=== PATIENT | female | born 1950 | race Caucasian/White ===

== ENCOUNTER → 2024-02-14 16:20 | Outpatient (REF) | payer OTHER, SELFPAY | LOC: WDC 16:20 | PROVIDERS: ATTENDING PHYSICIAN Family Medicine Geriatric Medicine; FAMILY PHYSICIAN Internal Medicine | DX: Z12.31 Encounter for screening mammogram for malignant neoplasm of breast (principal) | CPT/HCPCS: 77063; 77067 ==

== ENCOUNTER 2024-02-20 22:38 | Inpatient (IN) | payer OTHER, SELFPAY ==
[2024-02-20] VITALS (12 sets, daily range): BP systolic 127–139; BP diastolic 78–99; PULSE 93–102; BMI 28.6; BMI 27.9
[2024-02-20 17:17] LABS: % Basophils 0.6 % (0-2); % Eosinophils 2.4 % (0-6); % Immature Granulocytes 0.4 % (0-0.5); % Lymphocytes 18.2 % (20.5-51.1); % Neutrophils 67.4 % (42.2-75.2); Absolute Eosinophils 0.1 10^3/uL (0-0.7); Absolute Lymphocytes 0.9 10^3/uL (1.2-3.4); Absolute Monocytes 0.6 10^3/uL (0.1-0.6); Absolute Neutrophils 3.4 10^3/uL (1.4-6.5); Hematocrit 36.2 % (37.0-47.0); Hemoglobin 11.8 g/dL (12.0-16.0); Mean Corp Hgb Conc. 32.6 g/dL (33.0-37.0); Mean Corpuscular Hgb 31.9 pg (27.0-31.0); Mean Corpuscular Volume 97.8 fL (81.0-99.0); Mean Platelet Volume 10.3 fL (7.4-10.4); Nucleated Red Blood Cells % 0 %; Platelet Count 163 10^3/uL (130-400); White Blood Cell Count 5.1 10^3/uL (4.8-10.8)
[2024-02-20 17:31] LABS: ALT (SGPT) 59 U/L (0-35); AST (SGOT) 76 U/L (14-36); Albumin 3.9 g/dl (3.5-5.0); Alkaline Phosphatase 60 U/L (38-126); Blood Urea Nitrogen 16 mg/dl (7-17); Calcium 9.1 mg/dl (8.4-10.2); Carbon Dioxide 25 mmol/L (22-30); Chloride 101 mmol/L (98-107); Estimated Creatinine Clearance 87 ml/min; Glucose 102 mg/dl (70-99); Sodium 133 mmol/L (135-145); Total Bilirubin 0.5 mg/dl (0.2-1.3); Total Protein 6.2 g/dl (6.3-8.2); eGFR > 60.00
[2024-02-20 18:00] LABS: TSH Reflex To Free T4 1.39 uIU/ml (0.47-4.68)
[2024-02-20 18:09] LABS: Troponin I < 0.012 ng/ml
[2024-02-20] MEDS: ELIQUIS 5 MG PO (18:35)
[2024-02-20] MEDS: TYLENOL 1000 MG PO (19:02)
--- NOTE | 2024-02-20 19:44 | ED.GENMED ---
History of Present Illness
<Black Dolan DO - Last Filed: 02/20/24 19:49>
General
Chief Complaint: Chest Pain
Time Seen by Provider: 02/20/24 17:20
Travel History
Have you had any contact with someone who has COVID-19?: No
Do you have any symptoms of coronavirus? Fever > 100 degrees, chills, cough, shortness of breath, sore throat, loss of taste or smell, muscle aches, or headache?: No
<Malik De La Paz Jr., PA-C - Last Filed: 02/20/24 22:16>
General
Source: patient
Exam Limitations: none
Nursing documentation reviewed up to this point in time: agreed with
History of Present Illness
History of Present Illness:
73-year-old female past medical history of hypertension asthma presenting to the emergency department today after she found to be in atrial fibrillation with her primary care doctor where she went in to be seen for generalized weakness and fatigue
over the past few days that was initially intermittent but ongoing over the past 24 hours or so. Denies recent illness fevers or new medications.
Past History
<Black Dolan DO - Last Filed: 02/20/24 19:49>
Past History
ED Past Medical History: None
ED Past Surgical History: Appendectomy and Cholecystectomy
Social History
Tobacco: Non-smoker
Alcohol: None
Living: with family
Review of Systems
<Malik De La Paz Jr., PA-C - Last Filed: 02/20/24 22:16>
Review of Systems
Allergies reviewed?: Yes
All Other Systems: ROS reviewed and negative except as documented in HPI and ROS
Phy Exam
<Malik De La Paz Jr., PA-C - Last Filed: 02/20/24 22:16>
Physical Exam
Physical Exam:
GENERAL: Alert , in no apparent distress
EYE: pupils equal and reactive
NECK: Supple, no significant adenopathy.
ENT: o/p clr, mmm.
CARDIAC: Regular rate and rhythm .
LUNGS: Clear breath sounds bilaterally, no acute respiratory distress, no wheezes/rales/rhonchi
ABDOMEN: Soft, without focal tenderness, no r/g, no cvat
NEUROLOGICAL: Alert and oriented, no focal neuro deficits
SKIN: Warm and dry, skin intact.
MUSCULOSKELETAL: No edema, well perfused.
PSYCH: Normal and appropriate interaction.
Scores
<Malik De La Paz Jr., PA-C - Last Filed: 02/20/24 22:16>
Heart Score for Chest Pain Patients
STEMI patient?: No
History: Slightly or Non-Suspicious
ECG: Nonspecific Repolarization
Age: >/= 65 years
Risk Factors: 1 or 2 Risk Factors
Troponin: </= Normal Limit
Heart Score for Chest Pain Patients: 4
Heart Score Risk: 20.3% MACE over next 6 weeks
Course
<Black Dolan DO - Last Filed: 02/20/24 19:49>
Orders/Labs/Results
Orders:
Orders
02/20/24 16:07
Electrocardiogram (*1) Urgent
Reason for Study: Atrial Fibrillation
EKG- Treatment ONCE
02/20/24 17:06
Complete Blood Count/With Diff Urgent
NT-proBNP Urgent
Comment: ADD ON
TSH Reflex To Free T4 Urgent
02/20/24 17:07
Comprehensive Metabolic Panel Urgent
Troponin I Urgent
02/20/24 18:26
Apixaban [Eliquis] 5 mg PO ONCE ONE
02/20/24 19:00
Acetaminophen [Tylenol] 1,000 mg .ROUTE .STK-MED ONE
02/20/24 19:01
Acetaminophen [Tylenol] 1,000 mg PO NOW STA
02/20/24 19:42
0.9% Sodium Chloride 500 ml [Nss] 500 ml IV BOLUS
02/20/24 21:44
Urinalysis Reflex To Culture Routine
Date Specimen was Collected: 02/20/24
Time Specimen was Collected: 22:06
02/20/24 21:54
Admit/Transfer Patient As Directed
Co-Sign Provider:
Level of Care: Inpatient admission
Assign to:: Telemetry
Physician / Group: htay
Diagnosis: new onset AF, acute gait dysfunction
Reason for Telemetry: Arrhythmia
Date to Stop Telemetry: 02/23/24
Time to Stop Telemetry: 11:00
Reason for Hospitalization: new onset AF, acute gait dysfunction
Expected length of stay greater than two midnights?: Yes
ELOS- Estimated Length of Stay in days: 3
I certify the patient meets the requirements for IP care: Yes
02/20/24 21:56
Code Status As Directed
Resuscitation Status: Full Code
02/20/24 22:01
Add On- LAB Routine
Tests Added?: pro bnp
02/23/24 11:00
DC Protocol for Telemetry ONCE
Abnormal Lab Results
02/20/24 02/20/24
17:06 17:07
RBC 3.70 L 10^6/uL
(4.20-5.40)
Hgb 11.8 L g/dL
(12.0-16.0)
Hct 36.2 L %
(37.0-47.0)
MCH 31.9 H pg
(27.0-31.0)
MCHC 32.6 L g/dL
(33.0-37.0)
Absolute Lymphs (auto) 0.9 L 10^3/uL
(1.2-3.4)
Lymphocytes % 18.2 L %
(20.5-51.1)
Monocytes % 11.0 H %
(1.7-9.3)
Sodium 133 L mmol/L
(135-145)
Creatinine 0.5 L mg/dL
(0.6-1.0)
Glucose 102 H mg/dl
(70-99)
AST 76 H U/L
(14-36)
ALT 59 H U/L
(0-35)
Total Protein 6.2 L g/dl
(6.3-8.2)
02/20/24 17:06
02/20/24 17:07
Vital Signs
Initial and Last Documented VS:
Initial Vital Signs
Temp Pulse Resp BP Pulse Ox
98.0 F 110 16 133/78 98
02/20/24 16:13 02/20/24 16:13 02/20/24 16:13 02/20/24 16:13 02/20/24 16:13
Last Documented Vital Signs
Temp Pulse Resp BP Pulse Ox
98.0 F 110 16 133/78 95
02/20/24 16:13 02/20/24 16:13 02/20/24 16:13 02/20/24 16:13 02/20/24 16:51
<Malik De La Paz Jr., PA-C - Last Filed: 02/20/24 22:16>
Orders/Labs/Results
Orders:
Orders
02/20/24 16:07
Electrocardiogram (*1) Urgent
Reason for Study: Atrial Fibrillation
EKG- Treatment ONCE
02/20/24 17:06
Complete Blood Count/With Diff Urgent
NT-proBNP Urgent
Comment: ADD ON
TSH Reflex To Free T4 Urgent
02/20/24 17:07
Comprehensive Metabolic Panel Urgent
Troponin I Urgent
02/20/24 18:26
Apixaban [Eliquis] 5 mg PO ONCE ONE
02/20/24 19:00
Acetaminophen [Tylenol] 1,000 mg .ROUTE .STK-MED ONE
02/20/24 19:01
Acetaminophen [Tylenol] 1,000 mg PO NOW STA
02/20/24 19:42
0.9% Sodium Chloride 500 ml [Nss] 500 ml IV BOLUS
02/20/24 21:44
Urinalysis Reflex To Culture Routine
Date Specimen was Collected: 02/20/24
Time Specimen was Collected: 22:06
02/20/24 21:54
Admit/Transfer Patient As Directed
Co-Sign Provider:
Level of Care: Inpatient admission
Assign to:: Telemetry
Physician / Group: htay
Diagnosis: new onset AF, acute gait dysfunction
Reason for Telemetry: Arrhythmia
Date to Stop Telemetry: 02/23/24
Time to Stop Telemetry: 11:00
Reason for Hospitalization: new onset AF, acute gait dysfunction
Expected length of stay greater than two midnights?: Yes
ELOS- Estimated Length of Stay in days: 3
I certify the patient meets the requirements for IP care: Yes
02/20/24 21:56
Code Status As Directed
Resuscitation Status: Full Code
02/20/24 22:01
Add On- LAB Routine
Tests Added?: pro bnp
02/23/24 11:00
DC Protocol for Telemetry ONCE
Abnormal Lab Results
02/20/24 02/20/24
17:06 17:07
RBC 3.70 L 10^6/uL
(4.20-5.40)
Hgb 11.8 L g/dL
(12.0-16.0)
Hct 36.2 L %
(37.0-47.0)
MCH 31.9 H pg
(27.0-31.0)
MCHC 32.6 L g/dL
(33.0-37.0)
Absolute Lymphs (auto) 0.9 L 10^3/uL
(1.2-3.4)
Lymphocytes % 18.2 L %
(20.5-51.1)
Monocytes % 11.0 H %
(1.7-9.3)
Sodium 133 L mmol/L
(135-145)
Creatinine 0.5 L mg/dL
(0.6-1.0)
Glucose 102 H mg/dl
(70-99)
AST 76 H U/L
(14-36)
ALT 59 H U/L
(0-35)
Total Protein 6.2 L g/dl
(6.3-8.2)
02/20/24 17:06
02/20/24 17:07
Vital Signs
Initial and Last Documented VS:
Initial Vital Signs
Temp Pulse Resp BP Pulse Ox
98.0 F 110 16 133/78 98
02/20/24 16:13 02/20/24 16:13 02/20/24 16:13 02/20/24 16:13 02/20/24 16:13
Last Documented Vital Signs
Temp Pulse Resp BP Pulse Ox
98.0 F 110 16 133/78 95
02/20/24 16:13 02/20/24 16:13 02/20/24 16:13 02/20/24 16:13 02/20/24 16:51
<Malik De La Paz Jr., PA-C - Last Filed: 02/20/24 22:16>
MDM/Problems Addressed
MDM/Problems Addressed:
73-year-old female presenting to the emergency department today with concerns of new onset A-fib seen by the primary care. Upon arrival heart rate in the 90s to 110s normal pulse ox normal blood pressure labs unremarkable negative troponin. Case
was discussed with cardiology patient was started on anticoagulant. Patient was walked here in the ER but claiming that she felt very weak and tired did not feel well enough to go home. Concerning this plan to admit for further evaluation and
monitoring.
<Malik De La Paz Jr., PA-C - Last Filed: 02/20/24 22:16>
*Critical Care Note
Total Time (30-74mins, 75-104mins- exclusive of procedures): Not Applicable
ED Attending Note
<Black Dolan DO - Last Filed: 02/20/24 19:49>
ED Attending Note
Patient seen and examined by attending physician: Yes
I performed the substantive portion of visit, reviewed & personally made and approve the management plan that is documented in note by myself or RUSH.: Yes
ED Attending Note:
Patient is a 73-year-old female presents to the emergency department after being found in atrial fibrillation today. Patient is on metoprolol for her hypertension. Patient states that 3 days ago she had an episode where she felt like it was her
vertigo that was bothering her but she had to stop because she felt lightheaded and so she was going to pass out. It passed after about half an hour. Patient was not feeling great yesterday and then today she felt worse and was going to see her
doctor when she was instructed to come to the emergency department visit. That she was in atrial fibrillation. Patient has no previous history of similar episodes. Patient feels weak and lightheaded. Patient has diminished appetite with mild
nausea but no vomiting, diarrhea, melena or hematochezia. Patient's previous echocardiogram approximately 1 year ago had an EF of 60 to 65% with mild MR and thickening mitral valve leaflets. EKG shows atrial fibrillation with what appears to be a
left bundle branch block and PVCs.
Physical exam patient appears pale and weak. Heart is irregularly irregular with normal rate. Lungs are clear. No neck vein distention. No peripheral edema or cyanosis. Abdomen soft nontender. Patient is rate controlled. Depending on whether
the patient remains symptomatic or not we will determine whether the patient needs to be admitted. This is new onset atrial fibrillation. At the very least the patient will be anticoagulated and referred to cardiology in approximately a week for
possible cardioversion and further evaluation.
-
Portions of this chart may have been created with voice recognition software.� Occasional wrong word or��sound alike� substitutions may have occurred due to the inherent limitations of voice recognition software.
Discharge Plan
Departure
Patient Disposition: Admit
Date of Disposition: 02/20/24
Time of Disposition: 22:16
Admit to: Telemetry
Admit to doctor: Rhea
Presentation/result/management discussed w/ accepting MD/DO: Hospitalist
Patient with high blood pressure during this ER visit?: No
Condition: Good
Covid-19: Not Applicable
Discharge Problem:
Atrial fibrillation
Prescriptions:
No Action
metoprolol succinate 50 MG tablet extended release 24 hr
50 mg PO DAILY
montelukast 10 MG tablet
10 mg PO HS
multivitamin with folic acid [Tab-A-Erich] 1 TABLET tablet
1 tab PO DAILY
guaifenesin [Mucus Relief ER] 600 MG tablet extended release 12hr
1,200 mg PO BID
albuterol sulfate 1 PUFF HFA aerosol inhaler
2 puff inhalation R Q4HPRN PRN (Reason: sob)
letrozole 2.5 MG tablet
2.5 mg PO DAILY
cholecalciferol (vitamin D3) 2,000 UNITS tablet
2,000 units PO DAILY
fluoxetine 40 mg Capsule
80 mg PO HS
ibuprofen 200 mg Capsule
400 mg PO TID PRN (Reason: mild pain/fever)
fexofenadine 180 mg Tablet
180 mg PO DAILY
budesonide-formoterol [Symbicort] 160-4.5 mcg/actuation Hfa Aerosol Inhaler
2 puff INHALATION R BID
Prolia 60 mg/mL Syringe
60 mg SC [id number]
[facility] 40-10-5-3.3 mg Tablet
1 tab PO DAILY
fluticasone propionate [Flonase] 50 mcg/actuation [place],Suspension
1 spray INTRANASAL BID
Referrals:
Leslye Motley MD [Family Provider] -
Interventions
Interventions:
*Risk Screen - Suicide Last Done: 02/20/24 16:46
*General Assessment Last Done: 02/20/24 16:46
*Neglect/Abuse Screening Last Done: 02/20/24 16:46
ED- Fall Risk Assessment Last Done: 02/20/24 16:51
*ED COVID-19 Vaccine History Last Done: 02/20/24 16:13
ED- Cardiac Assessment Last Done: 02/20/24 16:50
Discharge Date and Time
Print Language: LAO
[2024-02-20] MEDS: NSS 500 IV (19:56)
--- NOTE | 2024-02-20 21:47 | HPS.HSE ---
Family Physician
-
Family Physician: Leslye Motley
Chief Complaint
-
Dizziness / lightheadedness
History of Present Illness
73F HX Asthma , HTN on Metoprolol , s/p lumpectomy of Rt Breast CA seen at ER for evaluation of dizziness / lightheadedness:
Dizziness / lightheadedness:
Acute onset today and Recalled similar symptoms few days ago for Mins but spontaneously resolved
Associate with feeling of passing out but denied passing out and fall
She saw out PCP evaluation today and noted in Fast AF thus sent to ER
No prior HX AF, CHF
ROS
No CP, No SoB , No Lgg swelling
Medical History
Past Medical History
Past Medical History: Reports COPD and HTN
Past Surgical History: Reports None
Social History
Tobacco: Non-smoker
Alcohol: None
Drug: None
Living: With Family
Family History
Family History: Not pertinent
Allergies / Home Medications
Allergies reflects when Allergies were last updated in [employer].
Home Medications with original date entered in [employer]
Allergy/Medication List:
Allergies
Allergy/AdvReac Type Severity Reaction Status Date / Time
latex Allergy Skin Verified 02/20/24 16:15
irritation,
blisters,
difficulty
breathing
Penicillins Allergy Swelling, Verified 02/20/24 16:15
rash, hives
Enviornmental Allergy Triggers Uncoded 02/20/24 16:15
asthma
Home Medications
budesonide-formoterol HFA 160 mcg-4.5 mcg/actuation aerosol inhaler (Symbicort) 2 puff inhalation BID 01/31/13
albuterol sulfate 90 mcg/actuation aerosol inhaler 1 puff inhalation R Q4HPRN PRN sob 08/02/19
guaifenesin 600 mg tablet, extended release 12 hr (Mucus Relief ER) 1,200 mg PO BID 08/02/19
metoprolol succinate 50 mg tablet,extended release 24 hr 50 mg PO DAILY 08/02/19
mometasone 50 mcg/actuation nasal spray (Nasonex) 2 spray intranasal DAILY 08/02/19
montelukast 10 mg tablet 10 mg PO HS 08/02/19
multivitamin with folic acid 400 mcg tablet (Tab-A-Erich) 1 tab PO DAILY 08/02/19
mupirocin 2 % topical ointment 1 applic intranasal BID #1 tube 12/14/19
cholecalciferol (vitamin D3) 50 mcg (2,000 unit) tablet 2,000 units PO DAILY 12/20/19
fluoxetine 20 mg capsule 80 mg PO HS 12/20/19
letrozole 2.5 mg tablet 2.5 mg PO DAILY 12/20/19
fexofenadine 180 mg tablet (Ivy) 1 tab PO Daily 12/31/19
acetaminophen 500 mg tablet 1,000 mg (2 x 500 mg) PO QID #1 tab 01/09/20
aspirin 325 mg tablet 325 mg PO DAILY #1 tab 01/09/20
docusate sodium 100 mg capsule 100 mg PO BID 01/09/20
famotidine 20 mg tablet 20 mg PO HS #30 tabs 01/09/20
ibuprofen 400 mg tablet 400 mg PO BID ##1 01/09/20
ondansetron HCl 4 mg tablet 4 mg PO Q6HPRN PRN nausea #20 tabs 01/09/20
sennosides 8.6 mg tablet (senna) 2 tab PO BID 01/09/20
tramadol 50 mg tablet 50 mg PO Q6HPRN PRN pain #40 tabs 01/09/20
Review of Systems
-
Constitutional: Reports No Symptoms
EENT: Reports No Symptoms
Respiratory: Reports No Symptoms
Cardiac: Reports See HPI and Palpitations
Abdomen/GI: Reports No Symptoms
: Reports No Symptoms
Musculoskeletal: Reports No Symptoms
Skin: Reports No Symptoms
Neurological: Reports Dizzy and Weakness
Endocrine: Reports No Symptoms
Hematologic/Lymphatic: Reports No Symptoms
Psych: Reports No Symptoms
Physical Exam
Vital Signs
Vital Signs
Temp Pulse Resp BP Pulse Ox
98.0 F 110 16 133/78 95
02/20/24 16:13 02/20/24 16:13 02/20/24 16:13 02/20/24 16:13 02/20/24 16:51
Physical Exam
General: No Apparent Distress, Comfortable and Other
HEENT: NormoCephalic and Anicteric
Respiratory: Clear; No Wheezes, Rales or Rhonchi
Cardiac: S1/S2, Irregular Rhythm and Tachycardia; No Murmur
Breast: Deferred by me
GI: Soft, Non Tender, Non Distended and Normal Bowel Sounds
Musculoskeletal: No Edema
Skin: Warm and Dry; No Jaundice
Neuro: AO x 3
Psych: Calm
Laboratory Results
-
02/20/24 17:06
02/20/24 17:07
Laboratory Results
Total Bilirubin 0.5 mg/dl (0.2-1.3) 02/20/24 17:07
AST 76 U/L (14-36) H 02/20/24 17:07
ALT 59 U/L (0-35) H 02/20/24 17:07
Alkaline Phosphatase 60 U/L (38-126) 02/20/24 17:07
Troponin I < 0.012 ng/ml 02/20/24 17:07
Data Reviewed
-
Medical Tests (Nuc Med, Echo, EKG etc): Report Reviewed by me
Lab Data: Labs Reviewed by me
Impression/Plan
-
Reviewed VS: afebrile , HR 110 BP 133/78
Data
Hgb 11.8
Na 133
eGFR > 60
AST 76 ALT 59 AKP 60
NEG TPNI
TSH 1.39
02/20/24 EKG at 1607
ATRIAL FIBRILLATION WITH PREMATURE VENTRICULAR OR ABERRANTLY CONDUCTED
COMPLEXES
LEFT AXIS DEVIATION
LEFT BUNDLE BRANCH BLOCK
ABNORMAL ECG
WHEN COMPARED WITH ECG OF 02-AUG-2019 17:00,
ATRIAL FIBRILLATION HAS REPLACED SINUS RHYTHM
01/31/23 ECHO
Nl LVEF 60-65
Diastolic function indeterminate.
Mild mitral regurgitation.
Moderately dilated left atrium.
No aortic stenosis. Trace aortic regurgitation is seen.
NO prior hospitalist admission:
ASSESSMENT & PLAN
Pending Rx reconciliation
Symptomatic new onset AF with VR 90-110
Associated palpitation/weakness and presyncope for a few days.
No prior HX AF , CHF, PE
nl TSH
- NEG TPNI
- check p BNP
- agree with Eliquis
- On CRATER AND PACKER metoprolol.
- ECHO in AM
- DCA card consulted
Acute gait dysfunction due to Fast AF
Associated weakness
- check UA
- PT/OT
HX Asthma
- cont all OP med after reconciliation
HX s/p lumpectomy of Rt Breast CA
- cont Letrazole
DVT Px: Eliquis
Code: Full
Ip TLM
[2024-02-20 22:28] LABS: Urine Albumin Negative (Neg - Trace); Urine Bilirubin Negative (Negative); Urine Character Clear (Clear); Urine Color Yellow; Urine Glucose Negative (Negative); Urine Ketone Negative (Negative); Urine Leukocyte Negative (Negative); Urine Nitrite Negative (Negative); Urine Occult Blood Negative (Negative); Urine Urobilinogen Negative (Neg - 1+)
[2024-02-20] MEDS: SINGULAIR 10 MG PO (23:09)
[2024-02-20] MEDS: TYLENOL 650 MG PO (23:09)
[2024-02-20 23:11] LABS: NT-proBNP 3010 pg/ml
[2024-02-21] VITALS (8 sets, daily range): BP systolic 102–151; BP diastolic 67–93; PULSE 86–102; O2SAT 97; BMI 27.5
--- NOTE | 2024-02-21 02:15 | PTCARENOTE ---
Patient arrived to floor VSS, NAD. Placed on monitor, A-fib with BBB. PT oriented to room and all questions answered. Call alvarez within reach
[2024-02-21] MEDS: TYLENOL PO ×2 (03:08→23:07)
[2024-02-21] MEDS: SYMBICORT 160/4.5 MCG INHALER 2 PUFF INH ×2 (08:14→20:28)
[2024-02-21] MEDS: MUCINEX 1200 MG PO ×2 (08:58→20:23)
[2024-02-21] MEDS: TYLENOL 650 MG PO ×4 (08:58→20:23)
[2024-02-21] MEDS: CLARITIN CHILDREN'S 5 MG PO (08:59)
[2024-02-21] MEDS: ELIQUIS 5 MG PO ×2 (08:59→20:24)
[2024-02-21] MEDS: FEMARA 2.5 MG PO (08:59)
[2024-02-21] MEDS: TOPROL XL 50 MG PO (08:59)
[2024-02-21 09:15] LABS: Hemoglobin 12.5 g/dL (12.0-16.0); Mean Corp Hgb Conc. 33.8 g/dL (33.0-37.0); Mean Corpuscular Hgb 32.1 pg (27.0-31.0); Mean Corpuscular Volume 94.9 fL (81.0-99.0); Mean Platelet Volume 10.9 fL (7.4-10.4); Platelet Count 164 10^3/uL (130-400); White Blood Cell Count 4.6 10^3/uL (4.8-10.8)
[2024-02-21 09:41] LABS: ALT (SGPT) 61 U/L (0-35); AST (SGOT) 74 U/L (14-36); Albumin 3.7 g/dl (3.5-5.0); Alkaline Phosphatase 58 U/L (38-126); Blood Urea Nitrogen 11 mg/dl (7-17); Calcium 8.3 mg/dl (8.4-10.2); Carbon Dioxide 22 mmol/L (22-30); Chloride 109 mmol/L (98-107); Estimated Creatinine Clearance 85 ml/min; Glucose 81 mg/dl (70-99); Sodium 136 mmol/L (135-145); Total Bilirubin 0.5 mg/dl (0.2-1.3); Total Protein 6.2 g/dl (6.3-8.2); eGFR > 60.00
--- NOTE | 2024-02-21 10:14 | W.PN.HOSP.TC ---
Today's Communication/Plan
-
Echo
DCA card eval
continue BB/Eliquis
Assessment / Plan
Assessment / Plan
Assessment:
New Onset, Parox A.fib with RVR
- neg trop; normal TSH
- BNP 3010, no overt evidence of CHF
- check CXR
- continue BB
- Eliquis initiated; [id number] score is 4 (gender, age, HTN)
- DCA cards consulted
- Echo: pending
weakness from A. Fib
- PT/OT
Elevated LFTs likely from transient hypoperfusion in setting of A. Fib
- trend LFTs
hx of Asthma
- continue Symbicort/Ivy/Flonase/Singulair
Hyponatremia - resolved
Essential HTN - continue BB
Allergic Rhinitis - on Nasonex.
Osteopenia
ARIANA - on CPAP qHS.
Hx Breast CA - continue Letrozole. S/P right lumpectomy, XRT.
Hx Melanoma - s/p resection
Depression - on Prozac.
hx of Acute Traumatic Left Ankle Fracture (distal left fibular)- s/p ORIF
DVT ppx: Eliquis
Code: Full
Anticipated Discharge: 24 - 48 hours
Subjective/Interval History
-
Date of Service: February 21, 2024
feels a slight headache, improving with Tylenol
denies any lightheadedness or dizziness
Objective Data
-
Labs:
Laboratory Results
02/21/24
08:02
WBC 4.6 L
Hgb 12.5
Hct 37.0
Plt Count 164
Sodium 136
Potassium 4.0
Chloride 109 H
Carbon Dioxide 22
BUN 11
Creatinine 0.4 L
Glucose 81
Calcium 8.3 L
Total Bilirubin 0.5
AST 74 H
ALT 61 H
Alkaline Phosphatase 58
Vital Signs:
Vital Signs
Temp Pulse Resp BP Pulse Ox
98.6 F 83 18 151/89 97
02/21/24 07:30 02/21/24 08:59 02/21/24 07:30 02/21/24 08:59 02/21/24 07:30
Physical Exam
-
General: No Apparent Distress
HEENT: Normocephalic and Atraumatic
Cardiac: Irregular Rhythm and Tachycardic
GI: Soft
Genito-urinary: No Costovertebral Tender
Neuro: AO x 3
Psych: Calm
Data Reviewed
-
Total Time Spent with Patient (in minutes): 42
Labs: Labs Reviewed by me
--- NOTE | 2024-02-21 12:06 | CON.CAR ---
Addendum entered and electronically signed by Daniele Castañeda MD 02/21/24 14:01:
I saw and examined the patient.
The HULL OUTFIT SUPERVISOR or PA's note was reviewed and I agree with the note.
Comment: General: Well developed, well nourished in NAD.
Neck: Supple, no JVD, HJR, carotids +2 B/L, no bruits bilaterally.
Heart: Non displaced PMI, irregular, no murmurs, No S3, S4, no rubs.
Lungs: Clear to auscultation bilaterally, no wheeze, rhonchi, rubs bilaterally,
normal expiratory phase.
Extremities: No clubbing, cyanosis or edema bilaterally.
Neuro: Grossly nonfocal, awake, alert and oriented x3.
Urvashi has a history of breast cancer, asthma, left bundle branch block, hypertension, sleep apnea on CPAP. She has had several months of palpitations. There was concern of A-fib but could not be documented by monitor. She noted fatigue and
weakness yesterday and found to be in atrial fibrillation. She feels a little better today. She remains in atrial fibrillation.
She remains in A-fib with suboptimal heart rate control. Will plan on DESTINEE/cardioversion on 02/21 a.m. Will consider antiarrhythmic therapy status post cardioversion with high risk of recurrent A-fib given multiple episodes of palpitations in the
past. Will give a dose of IV Lasix for elevated proBNP. Consider outpatient stress test given symptoms of discomfort in her neck with palpitations and left bundle branch block. Check echo
Original Note:
Consultation
Consultation Request
Date/Time Consultation Performed: 02/21/24
Requesting Provider: Dr. Wilkerson
Performing Provider: Tiffany Monterroso PA-C for Dr. Castañeda
Reason for Consultation: afib
Medical History
-
Chief Complaint: new afib
History of Present Illness:
Patient is a 73-year-old female with past medical history of right breast cancer status post partial mastectomy with radiation in 2019 on chronic letrozole, asthma, chronic left bundle branch block, hypertension, PVCs who we had last seen 02/2023 for
complaints of palpitations. There was concern for A-fib, however she had outpatient monitor 01/2023 without any atrial arrhythmias noted. She reports she has continued with intermittent palpitations since that time. They can occur more frequently
1 week and less frequently the next. She states normally they last for approximately a half an hour in duration. She states yesterday she noted fatigue and weakness which lasted much of the day. She was seen by her primary care physician and had
an EKG which showed new atrial fibrillation and was referred to the emergency room for evaluation as heart rates were rapid. She is chronically on Toprol 50 mg daily as an outpatient. Trop negative x1. Cardiology consulted for evaluation
PMH:
right breast cancer status post partial mastectomy with radiation in 2018 on chronic letrozole
asthma
chronic left bundle branch block
hypertension
PVCs
ARIANA on CPAP
Depression
Past Medical History
Past Medical History: Other (in HPI)
Social History
Tobacco: Non-Smoker
Alcohol: None
Personal:
Employment: Retired
Allergies / Home Medications
Allergy/AdvReac Type Severity Reaction Status Date / Time
latex Allergy Skin Verified 02/20/24 16:15
irritation,
blisters,
difficulty
breathing
Penicillins Allergy Swelling, Verified 02/20/24 16:15
rash, hives
Enviornmental Allergy Triggers Uncoded 02/20/24 16:15
asthma
�Medication �Instructions �Recorded �Confirmed �Type
albuterol sulfate 90 mcg/actuation 2 puff inhalation R Q4HPRN PRN sob 08/02/19 02/20/24 History
aerosol inhaler
guaifenesin 600 mg tablet, 1,200 mg PO BID 08/02/19 02/20/24 History
extended release 12 hr (Mucus
Relief ER)
metoprolol succinate 50 mg 50 mg PO DAILY 08/02/19 02/20/24 History
tablet,extended release 24 hr
montelukast 10 mg tablet 10 mg PO HS 08/02/19 02/20/24 History
multivitamin with folic acid 400 1 tab PO DAILY 08/02/19 02/20/24 History
mcg tablet (Tab-A-Erich)
cholecalciferol (vitamin D3) 50 2,000 units PO DAILY 12/20/19 02/20/24 History
mcg (2,000 unit) tablet
letrozole 2.5 mg tablet 2.5 mg PO DAILY 12/20/19 02/20/24 History
budesonide-formoterol HFA 160 2 puff inhalation R BID 02/20/24 02/20/24 History
mcg-4.5 mcg/actuation aerosol
inhaler (Symbicort)
cartilage 40 mg-collagen II 10 1 tab PO DAILY 02/20/24 02/20/24 History
mg-boron 5 mg-hyaluronate 3.3 mg
tablet (Cloudsnap)
denosumab 60 mg/mL subcutaneous 60 mg SC [id number] 02/20/24 02/20/24 History
syringe (Prolia)
fexofenadine 180 mg tablet 180 mg PO DAILY 02/20/24 02/20/24 History
fluoxetine 40 mg capsule 80 mg PO HS 02/20/24 02/20/24 History
fluticasone propionate 50 1 spray intranasal BID 02/20/24 02/20/24 History
mcg/actuation nasal
spray,suspension
ibuprofen 200 mg capsule 400 mg PO TID PRN mild pain/fever 02/20/24 02/20/24 History
Review of Systems
-
History Source: Patient
All other systems: Negative unless noted
Physical Exam
Vital Signs
Temp Pulse Resp BP Pulse Ox
97.7 F 85 18 134/84 97
02/21/24 11:25 02/21/24 11:25 02/21/24 11:25 02/21/24 11:25 02/21/24 11:25
Lab Results
02/21/24 08:02
02/21/24 08:02
Troponin I < 0.012 ng/ml 02/20/24 17:07
[id number] Pept Cancelled 02/20/24 21:44
Physical Exam
General: No Apparent Distress, Comfortable and Other (sitting in chair)
HEENT: Normocephalic, Anicteric and Moist Mucous Membranes
Respiratory: Rhonchi and Non Labored Respirations
Cardiac: S1/S2 and Irregular Rhythm
GI: Soft, Non Tender, Non Distended and Normal Bowel Sounds
Musculoskeletal: No Clubbing, No Cyanosis and No Edema
Skin: Warm and Dry
Neuro: AO x 3
Impression / Plan
-
Primary Machine Spreader: Dr. Castañeda
Assessment:
Presentation with fatigue, weakness
New atrial fibrillation with RVR, paroxysmal
Negative troponin x1
Mild LFT elevation
Right breast cancer status post partial mastectomy with radiation in 2019 on chronic letrozole
asthma
chronic left bundle branch block
hypertension
PVCs
ARIANA on CPAP
Depression
ECHO 01/31/23: EF 60 to 65%, mild MR, moderately dilated left atrium, trace AR
Plan:
-Patient presented to PCP with fatigue and weakness and was diagnosed with new atrial fibrillation with rapid ventricular response. She likely has been paroxysmal for quite some time, however was never been able to be caught on evaluation before.
-Remains in atrial fibrillation with suboptimal rates on outpatient Toprol 50 mg daily
-Discussed DESTINEE/cardioversion and she is agreeable to proceed. Will plan for a.m.
-Given paroxysmal nature of her atrial fibrillation, would consider addition of antiarrhythmic drug therapy post CV
-[id number] score of 4 for age, female, hypertension. She has been initiated on Eliquis 5 mg twice daily. Will have case management assess cost to patient
-Check echo, last from 01/2023 with results as above
-Reports in the setting of palpitations, she sometimes develops discomfort in her neck. Would consider for outpatient ischemic evaluation. Troponin negative x 1
-proBNP 3010. She has mildly elevated LFTs as well. She did not have chest x-ray on admission. She does not report shortness of breath at rest, however does report some dyspnea on exertion. She denies weight gain, lower extremity edema,
abdominal bloating, or orthopnea. Would consider for dose of IV Lasix 20 mg x 1
Data Reviewed
-
EKG: Tracing Personally Visualized and interpreted
Medical Tests (Nuc Med, Echo etc): Report Reviewed by me
Labs: Labs Reviewed by me
Old Records: Reviewed
--- NOTE | 2024-02-21 14:22 | CM ---
Addendum entered by Merlene Rdz 02/21/24 15:58:
Patient seen bedside.
IA completed.
Patient lives with spouse in a rancher type home with 1 step to enter.
patient ambulates with a cane.
Patient drives.
Patient independent prior to admission.
Patient had [facility] in the past.
PT/OT recommending no needs.
Per patient for CV tomorrow.
PCP: Dr Motley
Pharmacy: [facility]
Plan: home no needs.
Original Note:
CM consult re medication costs.
Eliquis 5 mg po bid noted by [facility] to be $47/month.
[2024-02-21] MEDS: LASIX 40 MG IV (16:56)
[2024-02-21] MEDS: SINGULAIR 10 MG PO (20:23)
[2024-02-21] MEDS: PROZAC 80 MG PO (20:24)
[2024-02-22] VITALS (7 sets, daily range): BP systolic 107–151; BP diastolic 61–98; BMI 26.4
[2024-02-22] MEDS: TYLENOL PO ×2 (04:40→07:40)
--- NOTE | 2024-02-22 05:15 | DOWNTIME ---
There was a [employer] Mid Level Clinician Downtime on 02/22/2024 from 0100 to 02/22/2024 at 0439. Downtime documentation of patient's care, including medication administrations, has been reconciled in the electronic record per guidelines. Refer to the
patient's paper chart under the miscellaneous tab to see printed paper medication records and downtime forms.
[2024-02-22] MEDS: ELIQUIS 5 MG PO ×2 (07:39→20:03)
[2024-02-22] MEDS: FEMARA 2.5 MG PO (07:39)
[2024-02-22] MEDS: TOPROL XL 50 MG PO (07:42)
[2024-02-22] MEDS: SYMBICORT 160/4.5 MCG INHALER INH (09:03)
[2024-02-22 11:12] LABS: Hematocrit 39.1 % (37.0-47.0); Hemoglobin 13.1 g/dL (12.0-16.0); Mean Corp Hgb Conc. 33.5 g/dL (33.0-37.0); Mean Corpuscular Hgb 32.1 pg (27.0-31.0); Mean Corpuscular Volume 95.8 fL (81.0-99.0); Mean Platelet Volume 10.5 fL (7.4-10.4); Platelet Count 177 10^3/uL (130-400); Red Blood Cell Count 4.08 10^6/uL (4.20-5.40); Red Cell Dist. Width 12.9 % (11.5-14.5); White Blood Cell Count 5.4 10^3/uL (4.8-10.8)
--- NOTE | 2024-02-22 11:23 | W.PN.CARDCBS ---
Today's Communication / Plan
-
Load with amiodarone if LFTs are improving
Remains in sinus rhythm status post DESTINEE/cardioversion
Consider discharge on amiodarone 200 mg p.o. twice daily on 02/22
Continue to follow off of diuretics
Consider outpatient stress testing given mildly reduced ejection fraction and left bundle branch block
Impression / Plan
-
Primary Compounding And Finishing Supervisor: Dr. Castañeda
Assessment:
Presentation with fatigue, weakness
New atrial fibrillation with RVR, paroxysmal -status post DESTINEE/cardioversion 02/22/2024
Mild cardiomyopathy ejection fraction 45% - 02/21/24
Moderate to severe TR
Mild LFT elevation
Right breast cancer status post partial mastectomy with radiation in 2018 on chronic letrozole
asthma
chronic left bundle branch block
hypertension
PVCs
ARIANA on CPAP
Depression
Echocardiogram 02/21/2024: Ejection fraction 45%, mild to moderate MR, severely dilated left atrium, moderate to severe TR with PA systolic of 50 mmHg
ECHO 01/31/23: EF 60 to 65%, mild MR, moderately dilated left atrium, trace AR
Plan:
She is seen status post DESTINEE/cardioversion to sinus rhythm
Left atrium is severely dilated and has had palpitations for many months so is at high risk of recurrent A-fib
Will load with amiodarone for at least the next 24-hour if LFTs are improved
[id number] score of 4 for age, female, hypertension. She has been initiated on Eliquis 5 mg twice daily. Will have case management assess cost to patient
She has had discomfort in her neck in the setting of palpitations and has mildly reduced ejection fraction left bundle branch block
Will schedule outpatient stress test when seen in follow-up in the office
She was given a dose of IV Lasix on 02/20 for elevated proBNP
Will continue to follow off of oral diuretics
Progress Note - Compounding And Finishing Supervisor
Subjective
Date of Service: February 22, 2024
No complaints. Seen status post DESTINEE/cardioversion.
Objective
Labs:
02/22/24 10:40
Labs
Hgb 13.1 g/dL (12.0-16.0) 02/22/24 10:40
Hct 39.1 % (37.0-47.0) 02/22/24 10:40
Plt Count 177 10^3/uL (130-400) 02/22/24 10:40
Sodium 136 mmol/L (135-145) 02/21/24 08:02
Potassium 4.0 mmol/L (3.5-5.1) 02/21/24 08:02
BUN 11 mg/dl (7-17) 02/21/24 08:02
Creatinine 0.4 mg/dL (0.6-1.0) L 02/21/24 08:02
Glucose 81 mg/dl (70-99) 02/21/24 08:02
Troponins
02/20/24
17:07
Troponin I < 0.012
Vital Signs and I&O:
Vital Signs
Temp Pulse Resp BP Pulse Ox
97.7 F 108 18 151/98 98
02/22/24 07:30 02/22/24 07:42 02/22/24 07:30 02/22/24 07:42 02/22/24 07:30
Vital Signs
Temp Pulse Resp BP Pulse Ox
97.7 F 108 18 151/98 98
02/22/24 07:30 02/22/24 07:42 02/22/24 07:30 02/22/24 07:42 02/22/24 07:30
Intake & Output
02/20/24 02/21/24 02/22/24 02/23/24
06:59 06:59 06:59 06:59
Intake Total 690 / 690
Balance 690 / 690
Physical Exam
Physical Exam
General: Well developed, well nourished in NAD.
Neck: Supple, no JVD, HJR, carotids +2 B/L, no bruits bilaterally.
Heart: Non displaced PMI, RRR, no murmurs, No S3, S4, no rubs.
Lungs: Clear to auscultation bilaterally, no wheeze, rhonchi, rubs bilaterally,
normal expiratory phase.
Extremities: No clubbing, cyanosis or edema bilaterally.
Neuro: Grossly nonfocal, awake, alert and oriented x3.
[2024-02-22] MEDS: MUCINEX 1200 MG PO ×2 (11:52→20:02)
[2024-02-22] MEDS: TYLENOL 650 MG PO ×3 (11:52→20:03)
[2024-02-22] MEDS: CLARITIN CHILDREN'S 5 MG PO (11:52)
[2024-02-22 13:09] LABS: ALT (SGPT) 40 U/L (0-35); AST (SGOT) 46 U/L (14-36); Albumin 3.7 g/dl (3.5-5.0); Alkaline Phosphatase 64 U/L (38-126); Blood Urea Nitrogen 17 mg/dl (7-17); Calcium 8.8 mg/dl (8.4-10.2); Carbon Dioxide 24 mmol/L (22-30); Chloride 101 mmol/L (98-107); Estimated Creatinine Clearance 76 ml/min; Glucose 82 mg/dl (70-99); Sodium 135 mmol/L (135-145); Total Bilirubin 0.6 mg/dl (0.2-1.3); Total Protein 6.1 g/dl (6.3-8.2); eGFR > 60.00
--- NOTE | 2024-02-22 13:50 | W.PN.HOSP.TC ---
Today's Communication/Plan
-
s/p CV and now on amio load
follow AM labs, tele/EKG
Assessment / Plan
Assessment / Plan
Assessment:
New Onset, Parox A.fib with RVR
- neg trop; normal TSH
- BNP 3010, no overt evidence of CHF. Did received 1 dose IV Lasix
- continue BB
- Eliquis initiated; [id number] score is 4 (gender, age, HTN)
- DCA cards following
- 2D Echo: Normal left ventricular chamber size. Abnormal (paradoxical) septal motion consistent with left bundle branch block. Mild concentric left ventricular hypertrophy. Left ventricular ejection fraction is 45% by Schwartz's method of discs.
Diastolic function indeterminate due to atrial fibrillation. Mitral valve opens normally. Thickened mitral valve leaflets. Mild to moderate mitral regurgitation. Severely dilated left atrium. Tricuspid valve opens normally. Moderate to severe
tricuspid regurgitation. Estimated pulmonary artery pressure of 50 mmHg assuming a right atrial pressure of 3 mmHg. Since echocardiogram 01/31/2023, ejection fraction has decreased from 60-65% to 45%. There is moderate to severe TR with moderate
pulm hypertension.
- s/p DESTINEE/CV 02/22 with congregation to sinus
- on Amiodarone load - monitor tele/EKG
weakness from A. Fib
- PT/OT - cleared for home no needs
Elevated LFTs likely from transient hypoperfusion in setting of A. Fib
- trend LFTs; improving
hx of Asthma
- continue Symbicort/Ivy/Flonase/Singulair
Hyponatremia - resolved
Essential HTN - continue BB
Allergic Rhinitis - on Nasonex.
Osteopenia
ARIANA - on CPAP qHS.
Hx Breast CA - continue Letrozole. S/P right lumpectomy, XRT.
Hx Melanoma - s/p resection
Depression - on Prozac.
hx of Acute Traumatic Left Ankle Fracture (distal left fibular)- s/p ORIF
DVT ppx: Eliquis
Code: Full
Anticipated Discharge: 24 - 48 hours
Subjective/Interval History
-
Date of Service: February 22, 2024
s/p DESTINEE/CV
now on amio load
no complaints
Objective Data
-
Labs:
Laboratory Results
02/22/24 02/22/24
10:40 11:53
WBC 5.4
Hgb 13.1
Hct 39.1
Plt Count 177
Sodium Cancelled 135
Potassium Cancelled 4.0
Chloride Cancelled 101
Carbon Dioxide Cancelled 24
BUN Cancelled 17
Creatinine Cancelled 0.6
Glucose Cancelled 82
Calcium Cancelled 8.8
Total Bilirubin Cancelled 0.6
AST Cancelled 46 H
ALT Cancelled 40 H
Alkaline Phosphatase Cancelled 64
Vital Signs:
Vital Signs
Temp Pulse Resp BP Pulse Ox
97.8 F 57 18 114/61 100
02/22/24 11:30 02/22/24 11:30 02/22/24 11:30 02/22/24 11:30 02/22/24 11:30
I&O
02/21/24 02/22/24 02/23/24
06:59 06:59 06:59
Intake Total 690 / 690
Balance 690 / 690
Physical Exam
-
General: No Apparent Distress
HEENT: Normocephalic and Atraumatic
Respiratory: Negative Wheezes
Cardiac: Regular Rhythm and S1/S2
GI: Soft
Genito-urinary: No Costovertebral Tender
Neuro: AO x 3
Psych: Calm
Data Reviewed
-
Total Time Spent with Patient (in minutes): 45
Labs: Labs Reviewed by me
[2024-02-22] MEDS: PACERONE 400 MG PO ×2 (17:24→21:21)
[2024-02-22] MEDS: SYMBICORT 160/4.5 MCG INHALER 2 PUFF INH (20:21)
[2024-02-22] MEDS: PROZAC 80 MG PO (21:22)
[2024-02-22] MEDS: SINGULAIR 10 MG PO (21:22)
[2024-02-23] MEDS: TYLENOL PO ×2 (01:10→03:12)
[2024-02-23 03:39] VITALS: BP 112/49
[2024-02-23 05:44] VITALS: BMI 27.2
[2024-02-23 07:00] VITALS: BP 116/55
[2024-02-23] MEDS: SYMBICORT 160/4.5 MCG INHALER 2 PUFF INH (07:40)
[2024-02-23 08:33] LABS: Hematocrit 35.8 % (37.0-47.0); Hemoglobin 12.2 g/dL (12.0-16.0); Mean Corp Hgb Conc. 34.1 g/dL (33.0-37.0); Mean Corpuscular Hgb 32.3 pg (27.0-31.0); Mean Corpuscular Volume 94.7 fL (81.0-99.0); Mean Platelet Volume 11.3 fL (7.4-10.4); Platelet Count 146 10^3/uL (130-400); Red Blood Cell Count 3.78 10^6/uL (4.20-5.40); White Blood Cell Count 4.6 10^3/uL (4.8-10.8)
[2024-02-23 09:30] LABS: ALT (SGPT) 39 U/L (0-35); AST (SGOT) 42 U/L (14-36); Albumin 3.6 g/dl (3.5-5.0); Alkaline Phosphatase 59 U/L (38-126); Blood Urea Nitrogen 14 mg/dl (7-17); Calcium 8.8 mg/dl (8.4-10.2); Carbon Dioxide 24 mmol/L (22-30); Chloride 102 mmol/L (98-107); Estimated Creatinine Clearance 76 ml/min; Glucose 85 mg/dl (70-99); Potassium 4.2 mmol/L (3.5-5.1); Sodium 130 mmol/L (135-145); Total Bilirubin 0.6 mg/dl (0.2-1.3); Total Protein 6.1 g/dl (6.3-8.2); eGFR > 60.00
[2024-02-23] MEDS: MUCINEX 1200 MG PO (09:48)
[2024-02-23] MEDS: CLARITIN CHILDREN'S 5 MG PO (09:48)
[2024-02-23] MEDS: ELIQUIS 5 MG PO (09:49)
[2024-02-23] MEDS: TOPROL XL 50 MG PO (09:49)
[2024-02-23] MEDS: TYLENOL 650 MG PO ×2 (09:49→11:54)
[2024-02-23] MEDS: FEMARA 2.5 MG PO (09:49)
[2024-02-23] MEDS: PACERONE 400 MG PO (09:49)
--- NOTE | 2024-02-23 10:26 | W.PN.CARDCBS ---
Addendum entered and electronically signed by Kayley Doran DO 02/23/24 12:30:
I saw and examined the patient.
The Health Safety Instructor's note was reviewed and I agree with the note.
Comment: Seen and examined. Patient is feeling well and is anxious to return home today. She denies chest pain or pressure, improved shortness of breath. Denies palpitations or dizziness. She has outpatient follow-up planned with Dr. Castañeda.
GEN:NAD
HEENT: mmm
LUNGS: CTA B/L, no wheezes/rales
CV: Reg, S1/S2, 2/6 SM
ABD: soft, BS+, NT/ND
EXT: no edema. Skin chase from hands-free zoll pads
Plan:
-Feeling better and maintaining sinus rhythm following DESTINEE/ cardioversion yesterday
-Mild itching around ZOLL pad on her back with slight skin burn; as needed Silvadene cream
-s/p DESTINEE/CV 02/21. remains in SR on review of tele overnight
-She was noted to have severe LA dilatation so high likelihood for afib recurrence.
-Decrease to 200mg BID for 2 weeks then decrease to 200mg daily
-LFTs improving. follow as OP
-continue eliquis
-Atypical neck discomfort in the setting of rapid atrial fibrillation with multiple cardiac risk factors
-ACS warning signs reviewed with patient
-Plan for outpatient stress test which will be arranged at her outpatient cardiac follow-up
-ok for DC to home today from cardiac standpoint
-OP cardiac follow up arranged
Original Note:
Today's Communication / Plan
-
amiodarone 200 BID for 2 weeks then decrease to 200mg daily
toprol 50mg daily
eliquis 5mg BID
CMP in 1 week
OP cardiac follow up arranged
will set up for OP stress test at follow up appt
Impression / Plan
-
Primary Bpm Architect: Dr. Castañeda
Assessment:
Presentation with fatigue, weakness
New atrial fibrillation with RVR, paroxysmal - status post DESTINEE/cardioversion 02/22/2024
Mild cardiomyopathy ejection fraction 45% - 02/21/24
Moderate to severe TR
Mild LFT elevation
Right breast cancer status post partial mastectomy with radiation in 2019 on chronic letrozole
asthma
chronic left bundle branch block
hypertension
PVCs
ARIANA on CPAP
Depression
ECHO 01/31/23: EF 60 to 65%, mild MR, moderately dilated left atrium, trace AR
Echocardiogram 02/21/2024: Ejection fraction 45%, mild to moderate MR, severely dilated left atrium, moderate to severe TR with PA systolic of 50 mmHg
Plan:
-she is feeling improved
-s/p DESTINEE/CV 02/21. remains in SR on review of tele overnight
-she was noted to have severe LA dilatation so high likelihood for afib recurrence. currently on amiodarone 400mg TID for load. will plan to decrease to 200mg BID for 2 weeks then decrease to 200mg daily
-LFTs improving. follow as OP
-continue eliquis
-She has had discomfort in her neck in the setting of palpitations and has mildly reduced ejection fraction by echo with a left bundle branch block. will plan for OP lexiscan nuclear stress test. reviewed with patient 02/22
-she was given dose of IV lasix 20mg x1 02/20 due to elevated proBNP with good response. denies SOB, LE edema, abd bloating. will have patient follow weight at home off diuretics at this time
-ok for DC to home today from cardiac standpoint
-OP cardiac follow up arranged
-d/w hospitalist via TT
Progress Note - Bpm Architect
Subjective
Date of Service: February 23, 2024
feeling well. no CP, SOB, palpitations. eager for DC
Objective
Labs:
02/23/24 07:49
02/23/24 07:49
Labs
Hgb 12.2 g/dL (12.0-16.0) 02/23/24 07:49
Hct 35.8 % (37.0-47.0) L 02/23/24 07:49
Plt Count 146 10^3/uL (130-400) 02/23/24 07:49
Sodium 130 mmol/L (135-145) L 02/23/24 07:49
Potassium 4.2 mmol/L (3.5-5.1) 02/23/24 07:49
BUN 14 mg/dl (7-17) 02/23/24 07:49
Creatinine 0.5 mg/dL (0.6-1.0) L 02/23/24 07:49
Glucose 85 mg/dl (70-99) 02/23/24 07:49
Troponins
02/20/24
17:07
Troponin I < 0.012
Vital Signs and I&O:
Vital Signs
Temp Pulse Resp BP Pulse Ox
97.8 F 57 14 116/55 98
02/23/24 07:00 02/23/24 07:43 02/23/24 07:43 02/23/24 07:00 02/23/24 07:43
Vital Signs
Temp Pulse Resp BP Pulse Ox
97.8 F 57 14 116/55 98
02/23/24 07:00 02/23/24 07:43 02/23/24 07:43 02/23/24 07:00 02/23/24 07:43
Intake & Output
02/21/24 02/22/24 02/23/24 02/24/24
07:59 07:59 07:59 07:59
Intake Total 690 / 690 900 / 900
Balance 690 / 690 900 / 900
Physical Exam
Physical Exam
GEN: No distress, awake, alert, oriented x3
HEENT: supple, anicteric, mmm, eomi
LUNGS: CTA B/L, no wheezes/rales
CV: Reg, S1/S2, no murmur
ABD: soft, BS+, NT/ND
EXT: No cyanosis, clubbing, edema
NEURO: Gross non-focal
SKIN: Warm, pink, dry. No rash
[2024-02-23 10:53] VITALS: BP 113/63
--- NOTE | 2024-02-23 12:02 | W.PN.HOSP.TC ---
Today's Communication/Plan
-
Ok for DC today
Assessment / Plan
Assessment / Plan
Assessment:
New Onset, Parox A.fib with RVR
- neg trop; normal TSH
- BNP 3010, no overt evidence of CHF. Did received 1 dose IV Lasix
- continue BB
- Eliquis initiated; [id number] score is 4 (gender, age, HTN)
- DCA cards following
- 2D Echo: Normal left ventricular chamber size. Abnormal (paradoxical) septal motion consistent with left bundle branch block. Mild concentric left ventricular hypertrophy. Left ventricular ejection fraction is 45% by Schwartz's method of discs.
Diastolic function indeterminate due to atrial fibrillation. Mitral valve opens normally. Thickened mitral valve leaflets. Mild to moderate mitral regurgitation. Severely dilated left atrium. Tricuspid valve opens normally. Moderate to severe
tricuspid regurgitation. Estimated pulmonary artery pressure of 50 mmHg assuming a right atrial pressure of 3 mmHg. Since echocardiogram 01/31/2023, ejection fraction has decreased from 60-65% to 45%. There is moderate to severe TR with moderate
pulm hypertension.
- s/p DESTINEE/CV 02/22 with rastafarian to sinus
- on Amiodarone load - monitor tele/EKG
-OK for DC today
weakness from A. Fib
- PT/OT - cleared for home no needs
Elevated LFTs likely from transient hypoperfusion in setting of A. Fib
- trend LFTs; improving
hx of Asthma
- continue Symbicort/Ivy/Flonase/Singulair
Hyponatremia - resolved
Essential HTN - continue BB
Allergic Rhinitis - on Nasonex.
Osteopenia
ARIANA - on CPAP qHS.
Hx Breast CA - continue Letrozole. S/P right lumpectomy, XRT.
Hx Melanoma - s/p resection
Depression - on Prozac.
hx of Acute Traumatic Left Ankle Fracture (distal left fibular)- s/p ORIF
DVT ppx: Eliquis
Code: Full
Anticipated Discharge: Today
Subjective/Interval History
-
Date of Service: February 23, 2024
feeling well
wants to go home
no chest pain or shortness of breath
Objective Data
-
Labs:
Laboratory Results
02/23/24
07:49
WBC 4.6 L
Hgb 12.2
Hct 35.8 L
Plt Count 146
Sodium 130 L
Potassium 4.2
Chloride 102
Carbon Dioxide 24
BUN 14
Creatinine 0.5 L
Glucose 85
Calcium 8.8
Total Bilirubin 0.6
AST 42 H
ALT 39 H
Alkaline Phosphatase 59
Vital Signs:
Vital Signs
Temp Pulse Resp BP Pulse Ox
97.3 F 60 16 113/63 97
02/23/24 10:53 02/23/24 10:53 02/23/24 10:53 02/23/24 10:53 02/23/24 10:53
I&O
02/22/24 02/23/24 02/24/24
06:59 06:59 06:59
Intake Total 690 / 690 900 / 900
Balance 690 / 690 900 / 900
Review of Systems
-
History Source: Patient
All other systems: Reviewed and negative
Physical Exam
-
General: No Apparent Distress
HEENT: Normocephalic and Atraumatic
Respiratory: Negative Wheezes
Cardiac: Regular Rhythm and S1/S2
GI: Soft
Genito-urinary: No Costovertebral Tender
Neuro: AO x 3
Psych: Calm
Data Reviewed
-
Diagnostic Radiology: Report Reviewed by me
Labs: Labs Reviewed by me
--- NOTE | 2024-02-23 12:08 | W.DS.TRANS ---
DC Summary - Manager Cafe
-
Discharge Instructions:
Discharge Diagnosis/Procedures atrial fibrillation with rapid ventricular rate
Diet Regular
Activity As tolerated
Driving Restrictions As prior to admission
Blood Work CMP in 1 week
Specialty Instructions Weigh Daily
Instructions:
Stand-Alone Forms:
Changes to Home Medications: Yes
Discharge Medications:
DC Medications w/original date entered in [facility]
albuterol sulfate 90 mcg/actuation aerosol inhaler 2 puff inhalation R Q4HPRN PRN sob 08/02/19
guaifenesin 600 mg tablet, extended release 12 hr (Mucus Relief ER) 1,200 mg PO BID 08/02/19
metoprolol succinate 50 mg tablet,extended release 24 hr 50 mg PO DAILY 08/02/19
montelukast 10 mg tablet 10 mg PO HS 08/02/19
multivitamin with folic acid 400 mcg tablet (Tab-A-Erich) 1 tab PO DAILY 08/02/19
cholecalciferol (vitamin D3) 50 mcg (2,000 unit) tablet 2,000 units PO DAILY 12/20/19
letrozole 2.5 mg tablet 2.5 mg PO DAILY 12/20/19
budesonide-formoterol HFA 160 mcg-4.5 mcg/actuation aerosol inhaler (Symbicort) 2 puff inhalation R BID 02/20/24
cartilage 40 mg-collagen II 10 mg-boron 5 mg-hyaluronate 3.3 mg tablet ([facility]) 1 tab PO DAILY 02/20/24
denosumab 60 mg/mL subcutaneous syringe (Prolia) 60 mg SC [id number] 02/20/24
fexofenadine 180 mg tablet 180 mg PO DAILY 02/20/24
fluoxetine 40 mg capsule 80 mg PO HS 02/20/24
fluticasone propionate 50 mcg/actuation nasal spray,suspension 1 spray intranasal BID 02/20/24
amiodarone 200 mg tablet (Pacerone) 200 mg PO BID #60 tabs 02/23/24
apixaban 5 mg tablet (Eliquis) 5 mg PO BID #60 tabs 02/23/24
Home Medication Changes
addition of amiodarone and Eliquis
stop NSAIDs
Pending Results: No
--- NOTE | 2024-02-23 12:43 | CM ---
Patient seen bedside.
Patient for d/c home today, denies needs.
IMM completed.
Son will transport.
Plan: home no needs.
--- NOTE | 2024-02-23 14:31 | W.DCSUMMARY ---
Discharge Summary
Discharge Data
Date of Admission: 02/20/24
Date of Discharge: 02/23/24
-
Pending Results: No
Hospital Course
Discharging Physician : Dr. Liliam Tello
Disposition : Home
Primary care physician : Dr. Leslye Motley
Principal Discharge diagnosis : Atrial Fibrillation with rapid ventricular rate
Hospital Course :
Ms. Indio Rodríguez is a 73 yo woman with hx HTN, COPD, ARIANA on CPAP with recent outpatient work-up several months palpitations presents to ER with dizziness found to have afib with HR 110's. She was admitted to medicine with Cardiology consulting.
Continued on Metoprolol with initiation of Eliquis (CHADs2-Vas score = 4). TTE with LBBB, EF 45%, mild to moderate MR and severely dilated left atrium. She underwent successful DESTINEE/cardioversion morning of 02/21. She was started on amiodarone.
Patient is discharged home with amio 200mg BID x 2 weeks then 200mg daily and Eliquis. She has follow up with cardiology. Outpatient stress test to be arranged (patient reported atypical neck discomfort during RVR and she has mildly reduced EF).
Of note, on discharge Na was 130, has been low 130's in past. She reports to drinking a lot of water. She is given instructions on fluid restriction and will have repeat labs drawn by PCP in one week.
Time spent on discharge was 35 minutes.
Important imaging findings :
TTE 02/21/24
CONCLUSIONS
Normal left ventricular chamber size. Abnormal (paradoxical) septal motion
consistent with left bundle branch block. Mild concentric left ventricular
hypertrophy. Left ventricular ejection fraction is 45% by Schwartz's method of
discs. Diastolic function indeterminate due to atrial fibrillation.
Mitral valve opens normally. Thickened mitral valve leaflets. Mild to moderate
mitral regurgitation. Severely dilated left atrium.
Tricuspid valve opens normally. Moderate to severe tricuspid regurgitation.
Estimated pulmonary artery pressure of 50 mmHg assuming a right atrial pressure
of 3 mmHg.
Since echocardiogram 01/31/2023, ejection fraction has decreased from 60-65% to
45%. There is moderate to severe TR with moderate pulm hypertension.
Indications:
new afib
Procedure findings :
02/22/24
PROCEDURE: The patient was prepared in the standard fashion in the procedural room in the cardiac suite. Propofol was administered by the anesthesiology team prior to cardioversion. The patient underwent a transesophageal echocardiogram which was
negative for left atrial appendage thrombus.
The patient underwent successful direct current cardioversion via 200 joule synchronized shock x1 with rastafari of sinus rhythm. There were no complications.
The patient will be transferred back up to the floors for continued management.
Discharge Plan
-
Patient Disposition: Home (Routine Discharge)
Discharge Diagnosis/Procedures: atrial fibrillation with rapid ventricular rate
Diet: Regular and Restrict fluids to 48 oz
Additional Diets: Your sodium is mildly low as it has been in past. Do not drink more than 48oz water per day so as to not dilute the sodium. Your sodium levels will be repeated again in one week.
Activity: As tolerated
Driving Restrictions: As prior to admission
Blood Work: CMP in 1 week (to be ordered by your PCP).
Specialty Instructions: Weigh Daily- Call MD for wt gain/loss 3 lbs overnight/5 lbs in 1 week
Referrals:
Susan Ballard CRNP [Specified Professional Personl] - 03/05/24 10:00 am (You have a cardiology follow-up appointment at the [facility] office. Please call with questions)
Leslye Motley MD [Family Provider] - in less than 1 week
Additional Discharge Medication Instructions: please take amiodarone 200mg twice daily for 2 weeks then decrease to 200mg daily.
It is very important that you take Eliquis twice a day as directed for stroke prevention.
Avoid NSAIDs (advil, aleve, motrin etc) while taking Eliquis.
Prescriptions:
New
amiodarone [Pacerone] 200 mg Tablet
200 mg PO BID Qty: 60 0RF
Rx Instructions:
Take twice daily x 2 weeks then start once daily.
Eliquis 5 mg Tablet
5 mg PO BID Qty: 60 0RF
Continued
metoprolol succinate 50 MG tablet extended release 24 hr
50 mg PO DAILY
montelukast 10 MG tablet
10 mg PO HS
multivitamin with folic acid [Tab-A-Erich] 1 TABLET tablet
1 tab PO DAILY
guaifenesin [Mucus Relief ER] 600 MG tablet extended release 12hr
1,200 mg PO BID
albuterol sulfate 1 PUFF HFA aerosol inhaler
2 puff inhalation R Q4HPRN PRN (Reason: sob)
letrozole 2.5 MG tablet
2.5 mg PO DAILY
cholecalciferol (vitamin D3) 2,000 UNITS tablet
2,000 units PO DAILY
fluoxetine 40 mg Capsule
80 mg PO HS
fexofenadine 180 mg Tablet
180 mg PO DAILY
budesonide-formoterol [Symbicort] 160-4.5 mcg/actuation Hfa Aerosol Inhaler
2 puff INHALATION R BID
Prolia 60 mg/mL Syringe
60 mg SC [id number]
Joint Health 40-10-5-3.3 mg Tablet
1 tab PO DAILY
fluticasone propionate 50 mcg/actuation [place],Suspension
1 spray INTRANASAL BID
Discontinued
ibuprofen 200 mg Capsule
400 mg PO TID PRN (Reason: mild pain/fever)
Discharge Orders:
Discharge Patient (As Directed); Ordered 02/23/24
Ordered By: Liliam Tello
Discharge Date and Time
Print Language: AZERBAIJANI
[2024-02-23 15:00] VITALS: BP 120/68
== END 2024-02-23 15:15 | disposition home or self-care (01) | DRG 309 ==
LOC: 4 WEST ACU 22:38
PROVIDERS: Internal Medicine; Physician Assistant; ADMITTING PHYSICIAN Internal Medicine; ATTENDING PHYSICIAN Student in an Organized Health Care Education/Training Program; CONSULT PHYSICIAN Nuclear Medicine Nuclear Cardiology; EMERGENCY PHYSICIAN Emergency Medicine; FAMILY PHYSICIAN Internal Medicine
PROC: 5A2204Z Restoration of Cardiac Rhythm, Single (ICD-10-PCS; 2024-02-22)
PROC: B24BZZ4 Ultrasonography of Heart with Aorta, Transesophageal (ICD-10-PCS; 2024-02-22)
DX: I48.0 Paroxysmal atrial fibrillation (principal); E87.1 Hypo-osmolality and hyponatremia; I10 Essential (primary) hypertension; J44.89 Other specified chronic obstructive pulmonary disease; G47.33 Obstructive sleep apnea (adult) (pediatric); I44.7 Left bundle-branch block, unspecified; I08.1 Rheumatic disorders of both mitral and tricuspid valves
CPT/HCPCS: 80053; 81003; 83880; 84443; 84484; 85025; 85027; 87070; 92960; 93005; 93306; 93312; 93320; 93325; 94640; 96360; 97116; 97161; 97166; 99285

== ENCOUNTER → 2024-03-09 09:29 | Day surgery (SDC) | payer OTHER, SELFPAY ==
--- NOTE | 2024-03-09 11:38 | ITS.CL.CARDI ---
[facility] - Cardioversion
Cardioversion
Procedure Report:
Date of Procedure:
Procedure: Cardioversion
Indication: Symptomatic atrial fibrillation
Performing Physician: Kole Hudson MD
Technique: The patient was brought to the holding area. Signed informed consent was obtained. A time out was called and performed. The patient was anesthetized by the anesthesia service. Anticoagulation status was reviewed and appropriate. R2 pads
were placed anteriorly and posteriorly. A 200 J synchronized biphasic shock restored normal sinus rhythm without significant bradycardia. There were no complications.
Conclusion: Uncomplicated cardioversion from atrial fibrillation to sinus rhythm.
Recommendation: Routine post cardioversion care. Continue snf anticoagulation.
== END ==
LOC: CATH 09:29
PROVIDERS: ATTENDING PHYSICIAN Internal Medicine Cardiovascular Disease; FAMILY PHYSICIAN Internal Medicine; OTHER PHYSICIAN Internal Medicine Cardiovascular Disease
DX: I48.0 Paroxysmal atrial fibrillation (principal); I10 Essential (primary) hypertension; I44.7 Left bundle-branch block, unspecified; J44.9 Chronic obstructive pulmonary disease, unspecified; Z79.01 Long term (current) use of anticoagulants
CPT/HCPCS: 92960; 93005

== ENCOUNTER → 2024-04-13 16:00 | Outpatient (REF) | payer OTHER, SELFPAY | LOC: HWRAD 16:00 | PROVIDERS: ATTENDING PHYSICIAN Internal Medicine | DX: M25.512 Pain in left shoulder (principal) | CPT/HCPCS: 73030 ==

== ENCOUNTER 2024-06-05 06:52 | Day surgery (SDC) | payer OTHER, SELFPAY ==
[2024-06-05 07:33] VITALS: BMI 26.3
== END 2024-06-05 09:20 | disposition home or self-care (01) ==
LOC: CATH 06:52
PROVIDERS: ATTENDING PHYSICIAN Nuclear Medicine Nuclear Cardiology; FAMILY PHYSICIAN Internal Medicine
DX: I08.3 Combined rheumatic disorders of mitral, aortic and tricuspid valves (principal); I48.19 Other persistent atrial fibrillation; I11.0 Hypertensive heart disease with heart failure; I50.22 Chronic systolic (congestive) heart failure; G47.33 Obstructive sleep apnea (adult) (pediatric); Z87.891 Personal history of nicotine dependence; Z85.3 Personal history of malignant neoplasm of breast; Z85.820 Personal history of malignant melanoma of skin; Z79.01 Long term (current) use of anticoagulants
CPT/HCPCS: 93312; 93320; 93325

== ENCOUNTER 2024-06-06 08:58 | Day surgery (SDC) | payer OTHER, SELFPAY ==
[2024-05-21 10:34] VITALS: BMI 28.3
[2024-05-21 11:33] LABS: INR 1.42; PT 17.1 Sec (11.4-14.6)
[2024-05-21 11:39] LABS: % Basophils 0.6 % (0-2); % Eosinophils 1.4 % (0-6); % Immature Granulocytes 0.4 % (0-0.5); % Lymphocytes 12.8 % (20.5-51.1); % Monocytes 10.3 % (1.7-9.3); % Neutrophils 74.5 % (42.2-75.2); Absolute Eosinophils 0.1 10^3/uL (0-0.7); Absolute Lymphocytes 0.7 10^3/uL (1.2-3.4); Absolute Monocytes 0.5 10^3/uL (0.1-0.6); Absolute Neutrophils 3.9 10^3/uL (1.4-6.5); Hematocrit 34.4 % (37.0-47.0); Hemoglobin 11.3 g/dL (12.0-16.0); Mean Corp Hgb Conc. 32.8 g/dL (33.0-37.0); Mean Corpuscular Hgb 31.7 pg (27.0-31.0); Mean Corpuscular Volume 96.4 fL (81.0-99.0); Mean Platelet Volume 10.9 fL (7.4-10.4); Nucleated Red Blood Cells % 0 %; Platelet Count 142 10^3/uL (130-400); Red Blood Cell Count 3.57 10^6/uL (4.20-5.40); Red Cell Dist. Width 14.3 % (11.5-14.5); White Blood Cell Count 5.2 10^3/uL (4.8-10.8)
[2024-05-21 11:46] LABS: ALT (SGPT) 42 U/L (0-35); AST (SGOT) 56 U/L (14-36); Alkaline Phosphatase 81 U/L (38-126); Blood Urea Nitrogen 18 mg/dl (7-17); Calcium 9.3 mg/dl (8.4-10.2); Carbon Dioxide 29 mmol/L (22-30); Chloride 103 mmol/L (98-107); Estimated Creatinine Clearance 86 ml/min; Glucose 77 mg/dl (70-99); Magnesium 2.2 mg/dl (1.6-2.3); Potassium 3.9 mmol/L (3.5-5.1); Sodium 139 mmol/L (135-145); Total Bilirubin 0.7 mg/dl (0.2-1.3); Total Protein 6.3 g/dl (6.3-8.2); eGFR > 60.00
[2024-06-06] VITALS (18 sets, daily range): BP systolic 101–139; BP diastolic 52–88; BMI 26.0
[2024-06-06 12:04] LABS: ACT-LR - POC 282 Seconds (116-155)
[2024-06-06 12:19] LABS: ACT-LR - POC 319 Seconds (116-155)
[2024-06-06 12:44] LABS: ACT-LR - POC 340 Seconds (116-155)
[2024-06-06 13:21] LABS: ACT-LR - POC 268 Seconds (116-155)
--- NOTE | 2024-06-06 13:45 | PTCARENOTE ---
Dr Franklin at pt bedside upon pt arrival to recovery room. Dr Franklin assessed pt's right groin. Right groin stable. No bleeding or hematoma noted. Pt is to stay overnight. Will continue to monitor.
--- NOTE | 2024-06-06 13:50 | ITS.CL.ABL ---
[employer] Paver Operator - Ablation
Ablation
Procedure Report:
Primary Avionics Safety Inspector: Daniele Castañeda MD
Procedure Date: 06/06/2024
Patient History:
Patient is a pleasant 73-year-old female with a past medical history significant for heart failure with mildly reduced ejection fraction, hypertension, left bundle branch block, PVCs, sleep apnea on CPAP, history of breast cancer, and paroxysmal now
persistent symptomatic atrial fibrillation.
See H&P for complete details.
Indication:
Symptomatic persistent atrial fibrillation
Cardioversion x 2 with early recurrence
Early recurrence on amiodarone therapy
Arrhythmia Specific History:
Prior Medical Therapies for Rate and Rhythm Control:
X Beta-aurora
[ ] Calcium channel-aurora
X Amiodarone
[ ] Dronederone
[ ] Sotalol
[ ] Flecainide
[ ] Dofetilide
[ ] Options limited by bradycardia
[ ] Options limited by comorbid renal disease
Prior Procedural Therapies for AF/AFL:
X Cardioversion
[ ] Pulmonary Vein Isolation
[ ] Posterior Wall Isolation
[ ] Additional lines (Specify)
[ ] Surgical Meyers-MAZE or PVI (Specify)
Procedure Performed:
X AF ablation procedure (07165) -- includes LA/CS pacing, trans-septal, 3D mapping, + ICE
[ ] +IV drug (13709)
[ ] +Other Arrhythmia (98181)
X +Other AF Line/ablation (01680) --posterior wall isolation
Risks and expected recovery has been explained in detail. Alternative options have been explored, and in a shared-decision making fashion we have decided that this was the most appropriate procedure.
Method
NPO status confirmed. Grounding pad applied. Defibrillator pads applied. Continuous surface ECG, pulse oximetry, and blood pressure were monitored. Procedure was performed under general anesthesia, with anesthesia services.
Both groins were clipped, prepped with Chloraprep, and draped in sterile fashion. Time out was called. Local anesthesia administered with bupivacaine. The right and left femoral veins were accessed for catheter placement, using ultrasound guidance,
micro-puncture needle/wire, and modified seldinger technique. 3 sheaths were placed. The following catheters were used:
[ ] Tacticath SE (D/F Curve) ablation catheter
X Viewflex 9Fr ICE catheter
X Inquiry decapolar 6Fr diagnostic catheter
[ ] CRD Hex 6Fr
[ ] Arctic Front Advance Cryoballoon ([ ]28mm[ ]23mm)
[ ] Achieve Advance mapping catheter ([ ]15mm[ ]20mm)
X FlexCath Contour 10 Fr with PulseSelect PFA Catheter
X Advisor HD Grid Mapping Catheter, SE
[ ] Acuson AcuNav 8 Fr ICE catheter
[ ]Other: [ ]
Intracardiac ultrasound (ICE) was carefully advanced into the right atrium to guide sheath placement over a J-wire, catheter placement, guide trans-septal puncture, identify potential complications, identify anatomic structures and ensure proper
contact between ablation catheter and tissue.
Heparin was given prior to trans-septal puncture. Heparin was given to achieve and maintain a target ACT of 300-400 seconds throughout the procedure.
Trans-septal access was performed under ICE guidance. The trans-septal puncture was performed with a SafeSept wire through a Brockenbrough needle assembly through the steerable sheath. The wire was visualized as it entered the LSPV and system
advanced under ICE guidance and fluoroscopy into the LA. The Brockenbrough needle assembly, SafeSept wire and sheath dilator were removed under negative pressure. LA pressure was measured and recorded.
ICE and 3D mapping was performed to identify relevant cardiac structures. A careful 3D map was created to assess for regions of low-voltage and abnormal electrogram signals using HD grid mapping catheter and PulseSelect catheter. Additional mapping
was performed as outlined below.
Prior to ablation, glycopyrrolate was provided. PulseSelect catheter was advanced over J-wire to the ostium of each vein. Pulmonary vein isolation was performed with ostial and antral lesions in a circumferential manner. Contact was visualized via
EAM, ICE, fluoroscopy, and EGM signals. Posterior wall isolation was performed by anchoring the J-wire within the pulmonary vein and placing the PulseSelect catheter in contact with the posterior wall as visualized by aforementioned methods.
Following completion of ablation lesions, sinus rhythm was restored with a 200J synchronized DCCV and a post-ablation voltage/activation map was performed in sinus rhythm. Entrance and exit block were confirmed for each vein and the posterior wall.
At the end of procedure prior to removal of sheaths, patient's right groin was noted to have mild swelling. With manual pressure, swelling was reduced and groin was soft.
Catheter and sheath were removed from the left atrium and post-ablation intracardiac echo evaluation was consistent with pre-ablation with no changes and no pericardial effusion and there is no left atrial thrombus or left ventricle thrombus seen.
Electrophysiology study was performed. Hemostasis was obtained with figure of 8 stitch for each groin and with manual pressure. Protamine was used for reversal. No swelling was noted following manual pressure and dressing of the groin site. Manual
pressure was continued at that time to ensure hemostasis.
Estimated Blood Loss
10 mL
Complications
None
Fluoroscopy: 3.6 minutes; 9.57 mGy; DAP 1.32
Baseline Intervals:
Rhythm: AF
QRS: 170 ms
QT: 473 ms
QTc: 578 ms
Post-Procedure Intervals:
ME: 212 ms
QRS: 157 ms
QT: 536 ms
QTc: 520 ms
AVWB: 530 ms
AVNERP: 600/480 ms
Recommendations
- Bedrest with straight-leg precautions as ordered
- Admit for closer monitoring with anticipate discharge home tomorrow after overnight observation
- Resume home medications as indicated
- Ok to resume anticoagulation tonight if patient and groin sites stable
- PPI daily for 30 days
- Plan for follow-up in office as scheduled
Brain Franklin DO
Clinical Cardiac Pipe Straightener
cc: Daniele Castañeda MD; Leslye Motley MD
--- NOTE | 2024-06-06 14:05 | PTCARENOTE ---
Olimpia CARTER at pt bedside assessing pt's right groin. Right groin stable. Pt also with rales 1/2 bilaterally. Pulse ox 100% on 3L NC. No respiratory distress noted. Pt without complaints at this time. No further treatment ordered at this
time. Will continue to monitor.
--- NOTE | 2024-06-06 14:12 | PTCARENOTE ---
After pt coughing and deep breathing, rales decreased to fine bibasilar rales. Pt's pulse ox 100% on 3L NC. Oxygen decreased to room air. Will continue to monitor.
[2024-06-06] MEDS: TYLENOL 650 MG PO (14:50)
--- NOTE | 2024-06-06 15:30 | PTCARENOTE ---
Received report from Chelsi in the pathology laboratory aides teacher; Rec'd pt AAOx3, w/no c/o SOB, but pt is c/o of mid upper back & mid upper epigatric pain. Pt had recently received PO PRN Tylenol in the micro lab analyst. Pt's VS stable w/HR in the 50's & BP 116/62 on arrival.
Pt is SB w/1st deg AV block & BBB on telemetry monitoring & verified by EKG post procedure. Pt's R groin w/fig of 8 suture & dressing C/D/I. No signs of bleeding & hematoma noted earlier in micro lab analyst is not apparent. There is an area of ecchymosis
around dressing site. Pt informed of bedrest status until 1930 this evening. Pt verbalized her understanding. Call alvarez within reach & plan of care ongoing.
--- NOTE | 2024-06-06 16:23 | CM ---
Chart reviewed. Patient is independent of ADLS, lives with her in a 1 [address], 2 AMELIA, ambulates with a SPC. Plan is for the patient to return home. CM to follow
[2024-06-06] MEDS: MAALOX 30 ML PO (17:04)
[2024-06-06] MEDS: MUCINEX 1200 MG PO (20:12)
[2024-06-06] MEDS: ANESTHETIC LOZENGE 1 LOZENGE PO (20:13)
[2024-06-06] MEDS: SYMBICORT 160/4.5 MCG INHALER 2 PUFF INH (20:39)
[2024-06-06] MEDS: ELIQUIS 5 MG PO (21:47)
[2024-06-06] MEDS: SINGULAIR 10 MG PO (21:47)
[2024-06-06] MEDS: PROZAC 80 MG PO (21:48)
[2024-06-07 04:20] VITALS: BP 109/61
[2024-06-07 05:49] LABS: Blood Urea Nitrogen 19 mg/dl (7-17); Calcium 8.7 mg/dl (8.4-10.2); Carbon Dioxide 26 mmol/L (22-30); Chloride 102 mmol/L (98-107); Estimated Creatinine Clearance 76 ml/min; Glucose 123 mg/dl (70-99); Potassium 3.6 mmol/L (3.5-5.1); Sodium 135 mmol/L (135-145); eGFR > 60.00
[2024-06-07 05:54] LABS: Hematocrit 32.8 % (37.0-47.0); Hemoglobin 11.3 g/dL (12.0-16.0); Mean Corp Hgb Conc. 34.5 g/dL (33.0-37.0); Mean Corpuscular Hgb 32.6 pg (27.0-31.0); Mean Corpuscular Volume 94.5 fL (81.0-99.0); Mean Platelet Volume 10.6 fL (7.4-10.4); Platelet Count 140 10^3/uL (130-400); Red Blood Cell Count 3.47 10^6/uL (4.20-5.40); Red Cell Dist. Width 14.4 % (11.5-14.5); White Blood Cell Count 6.2 10^3/uL (4.8-10.8)
[2024-06-07 06:00] VITALS: BMI 26.7
--- NOTE | 2024-06-07 06:27 | PTCARENOTE ---
Assumed care of patient at change of shift. VSS, sinus sergei with first degree and BBB on tele. Figure 8 sutures removed from right groin at 1940. Gauze and Tegaderm applied to site, dressing remains dry/intact with surrounding ecchymosis. No
hematoma noted. Patient remains on CPAP at HS. Up to commode with x1 assist. Plan of care discussed, instructed to call for assistance for ambulation and patient verbalizes understanding. Call alvarez within reach.
[2024-06-07] MEDS: SYMBICORT 160/4.5 MCG INHALER 2 PUFF INH (07:20)
--- NOTE | 2024-06-07 08:10 | W.PN.CARDCBS ---
Today's Communication / Plan
-
post PVI, feeling good
groin stable
IV lasix x 1 this am
home this afternoon
Impression / Plan
-
Primary care physician: Leslye Motley MD
Primary Haulage Engine Operator: Daniele Castañeda MD
73-year-old female with a past medical history significant for heart failure with mildly reduced ejection fraction, hypertension, left bundle branch block, PVCs, sleep apnea on CPAP, history of breast cancer, and paroxysmal now persistent
symptomatic atrial fibrillation.
Impression:
Symptomatic persistent Afib
post PVI and PW ablation 06/06/24
Chronic HFmrEF 45%
HTN
Hyperlipidemia
LBBB
ARIANA/CPAP
Asthma
Breast cancer
Skin Cancer
Osteoarthritis
ADHD
former smoker
Plan:
post ablation feels good
R groin with small HT during case, manual pressure, u/s neg for HT/PSA, Hbg stable
tele SB 1deg AVB
HF wt up 2kg, and bibasilar rales, lasix IV 40mg x1 now
K 3.6 replete, check Magnesium
OAC Eliquis
continue amiodarone, hold Toprol this am HR 55-60, resume tomorrow
Add PPI for 30 days
Activity restrictions reviewed
reinforced compliance with CPAP
f/u Dr. Castañeda in 2 mo
home later this afternoon
Progress Note - Haulage Engine Operator
Subjective
Date of Service: June 07, 2024
no cp, sob, mild groin tenderness
Objective
Labs:
06/07/24 04:18
06/07/24 04:18
Labs
Hgb 11.3 g/dL (12.0-16.0) L 06/07/24 04:18
Hct 32.8 % (37.0-47.0) L 06/07/24 04:18
Plt Count 140 10^3/uL (130-400) 06/07/24 04:18
PT 17.1 Sec (11.4-14.6) H 05/21/24 10:59
INR 1.42 05/21/24 10:59
Sodium 135 mmol/L (135-145) 06/07/24 04:18
Potassium 3.6 mmol/L (3.5-5.1) 06/07/24 04:18
BUN 19 mg/dl (7-17) H 06/07/24 04:18
Creatinine 0.6 mg/dL (0.6-1.0) 06/07/24 04:18
Glucose 123 mg/dl (70-99) H 06/07/24 04:18
Vital Signs and I&O:
Vital Signs
Temp Pulse Resp BP Pulse Ox
98.4 F 63 18 109/61 96
06/07/24 04:34 06/07/24 07:24 06/07/24 07:24 06/07/24 04:20 06/07/24 07:24
Vital Signs
Temp Pulse Resp BP Pulse Ox
98.4 F 63 18 109/61 96
06/07/24 04:34 06/07/24 07:24 06/07/24 07:24 06/07/24 04:20 06/07/24 07:24
Intake & Output
06/05/24 06/06/24 06/07/24 06/08/24
06:59 06:59 06:59 06:59
Intake Total 1660 / 1660
Output Total 400 / 400 125 / 125
Balance 1260 / 1260 -125 / -125
Physical Exam
Physical Exam
NAD< AOX3
S1, s2, RRR
bibasilar crackles, no wheeze, non labored
SNTND bsx4
No LE edema
R fem site soft, moderate ecchymosis, tender to palpation
+2 DP pulses b/l
[2024-06-07 08:13] VITALS: BP 107/56
--- NOTE | 2024-06-07 08:30 | PTCARENOTE ---
Assumed care of pt from prev nsg shift; Pt AAOx3 w/no c/o CP or SOB. VSS, NSR with first degree and BBB on tele. Pt's R groin dressing C/D/I w/purple ecchymosis surrounding dressing, but no signs or symptoms of bleeding or hematoma. Stat IV Lasix
administered as ordered & pt up to commode with x1 assist. Plan of care discussed, instructed to call for assistance for ambulation and patient verbalizes understanding. Call alvarez within reach.
[2024-06-07 09:03] LABS: Magnesium 2.3 mg/dl (1.6-2.3)
[2024-06-07] MEDS: LASIX 40 MG IV (09:08)
[2024-06-07] MEDS: FEMARA 2.5 MG PO (09:08)
[2024-06-07] MEDS: PROTONIX 40 MG PO (09:08)
[2024-06-07] MEDS: KCL 40 MEQ PO (09:08)
[2024-06-07] MEDS: ELIQUIS 5 MG PO (09:09)
[2024-06-07] MEDS: MUCINEX 1200 MG PO (09:09)
[2024-06-07] MEDS: PACERONE 200 MG PO (09:09)
--- NOTE | 2024-06-07 10:57 | W.DS.TRANS ---
DC Summary - Library Page
-
Discharge Instructions:
Discharge Diagnosis/Procedures AFib, post ablation
Diet Low Cholesterol,2 Gram Sodium
Driving Restrictions No driving for 24 hours
Specialty Instructions Weigh Daily
Instructions:
Stand-Alone Forms: DC Instructions- Cath/EP Lab
Changes to Home Medications: Yes
Discharge Medications:
DC Medications w/original date entered in [facility]
albuterol sulfate 90 mcg/actuation aerosol inhaler 2 puff inhalation Q4HPRN PRN sob 08/02/19
guaifenesin 600 mg tablet, extended release 12 hr (Mucus Relief ER) 1,200 mg PO BID 08/02/19
metoprolol succinate 50 mg tablet,extended release 24 hr 50 mg PO DAILY 08/02/19
montelukast 10 mg tablet 10 mg PO HS 08/02/19
multivitamin with folic acid 400 mcg tablet (Tab-A-Erich) 1 tab PO DAILY 08/02/19
cholecalciferol (vitamin D3) 50 mcg (2,000 unit) tablet 2,000 units PO DAILY 12/20/19
letrozole 2.5 mg tablet 2.5 mg PO DAILY 12/20/19
budesonide-formoterol HFA 160 mcg-4.5 mcg/actuation aerosol inhaler (Symbicort) 2 puff inhalation BID 02/20/24
cartilage 40 mg-collagen II 10 mg-boron 5 mg-hyaluronate 3.3 mg tablet ([employer]) 1 tab PO DAILY 02/20/24
denosumab 60 mg/mL subcutaneous syringe (Prolia) 60 mg SC [id number] 02/20/24
fexofenadine 180 mg tablet 180 mg PO DAILYPRN PRN allergies 02/20/24
fluoxetine 40 mg capsule 80 mg PO HS 02/20/24
fluticasone propionate 50 mcg/actuation nasal spray,suspension 1 spray intranasal DAILYPRN PRN allergies 02/20/24
apixaban 5 mg tablet (Eliquis) 5 mg PO BID #60 tabs 02/23/24
acetaminophen 325 mg tablet (Tylenol) 325 mg PO Q4HPRN PRN pain 03/09/24
calcium carbonate (Tums) 200 mg PO BIDPRN PRN reflux 03/09/24
carboxymethylcellulose sodium 1 % eye liquid gel drops 2 drp ophthalmic (eye) HS 03/09/24
levalbuterol HCl 1.25 mg/3 mL solution for nebulization 1.25 mg inhalation TIDPRN PRN SOB 03/09/24
furosemide 20 mg tablet 40 mg PO DAILY 05/16/24
amiodarone 200 mg tablet (Pacerone) 200 mg PO DAILY 06/05/24
fluconazole 150 mg tablet 150 mg PO DAILYPRN PRN yeast 06/05/24
pantoprazole 40 mg tablet,delayed release (Protonix) 40 mg PO DAILY #30 tabs 06/07/24
Home Medication Changes
new to protonix for 30 days
Pending Results: No
[2024-06-07 11:13] VITALS: BP 120/65
--- NOTE | 2024-06-07 14:00 | PTCARENOTE ---
Discussed D/C instructions w/pt & pt's IV line & telemetry pack removed. Pt left w/personal belongings including cell phone, volumetric weigher, own CPAP machine, & clothing. Pt escorted out by staff via WC w/her son driving her home.
== END 2024-06-07 14:37 | disposition home or self-care (01) ==
LOC: CATH 08:58
PROVIDERS: Nurse Practitioner; ATTENDING PHYSICIAN Internal Medicine Cardiovascular Disease; FAMILY PHYSICIAN Internal Medicine; OTHER PHYSICIAN Internal Medicine Cardiovascular Disease
DX: I48.19 Other persistent atrial fibrillation (principal); R11.0 Nausea; R00.2 Palpitations; R55 Syncope and collapse; R53.1 Weakness; R42 Dizziness and giddiness; I50.9 Heart failure, unspecified; I11.0 Hypertensive heart disease with heart failure; G47.33 Obstructive sleep apnea (adult) (pediatric); Z87.891 Personal history of nicotine dependence; J45.909 Unspecified asthma, uncomplicated; F41.9 Anxiety disorder, unspecified; F32.A Depression, unspecified; M19.90 Unspecified osteoarthritis, unspecified site; M85.80 Other specified disorders of bone density and structure, unspecified site; Z85.820 Personal history of malignant melanoma of skin; Z85.3 Personal history of malignant neoplasm of breast; Z92.3 Personal history of irradiation; F90.9 Attention-deficit hyperactivity disorder, unspecified type; Z79.51 Long term (current) use of inhaled steroids; Z79.899 Other long term (current) drug therapy; Z79.811 Long term (current) use of aromatase inhibitors; R06.02 Shortness of breath; Z88.0 Allergy status to penicillin; Z88.8 Allergy status to other drugs, medicaments and biological substances; E78.5 Hyperlipidemia, unspecified; I44.7 Left bundle-branch block, unspecified; Z85.828 Personal history of other malignant neoplasm of skin; Z79.01 Long term (current) use of anticoagulants
CPT/HCPCS: C1732; C1733; C1769; C1766; 36415; 75572; 76937; 80048; 80053; 83735; 85025; 85027; 85347; 85610; 86850; 86900; 86901; 87070; 93005; 93656; 93657; 93926; 94640; Q9967

== ENCOUNTER 2025-02-08 01:21 | Observation (INO) | payer OTHER, SELFPAY ==
[2025-02-07 18:02] VITALS: BP 116/55
[2025-02-07 18:05] VITALS: BMI 26.1
[2025-02-07 18:14] LABS: % Basophils 0.1 % (0-2); % Eosinophils 0.1 % (0-6); % Immature Granulocytes 0.3 % (0-0.5); % Lymphocytes 2.2 % (20.5-51.1); % Monocytes 5.2 % (1.7-9.3); % Neutrophils 92.1 % (42.2-75.2); Absolute Lymphocytes 0.2 10^3/uL (1.2-3.4); Absolute Monocytes 0.4 10^3/uL (0.1-0.6); Absolute Neutrophils 6.7 10^3/uL (1.4-6.5); Hematocrit 39.4 % (37.0-47.0); Hemoglobin 13.2 g/dL (12.0-16.0); Mean Corp Hgb Conc. 33.5 g/dL (33.0-37.0); Mean Corpuscular Hgb 32.4 pg (27.0-31.0); Mean Corpuscular Volume 96.6 fL (81.0-99.0); Mean Platelet Volume 9.5 fL (7.4-10.4); Nucleated Red Blood Cells % 0 %; Platelet Count 145 10^3/uL (130-400); Red Blood Cell Count 4.08 10^6/uL (4.20-5.40); Red Cell Dist. Width 12.7 % (11.5-14.5); White Blood Cell Count 7.3 10^3/uL (4.8-10.8)
[2025-02-07 18:35] LABS: Blood Urea Nitrogen 23 mg/dl (7-17); Calcium 8.3 mg/dl (8.4-10.2); Carbon Dioxide 22 mmol/L (22-30); Chloride 105 mmol/L (98-107); Estimated Creatinine Clearance 75 ml/min; Glucose 130 mg/dl (70-99); Lipase 42 U/L (23-300); Sodium 135 mmol/L (135-145); eGFR > 60.00
[2025-02-07] MEDS: NSS 1000 IV (18:50)
--- NOTE | 2025-02-07 19:03 | ED.GENMED ---
History of Present Illness
General
Chief Complaint: Abdominal Symptoms
Source: patient
Exam Limitations: none
Time Seen by Provider: 02/07/25 18:07
Nursing documentation reviewed up to this point in time: agreed with
History of Present Illness
History of Present Illness:
Patient is a 74 old female with past medical history of A-fib on Eliquis hypertension, asthma who presents to the ER complaining nausea vomiting diarrhea since 3 AM. She reports she cannot hold liquids down and feels very weak. She denies any
abdominal pain or fevers. No sick contacts at home. She lives with her .
She denies any urinary frequency urgency or dysuria.
she denies any chest pain abdominal pain..
Past History
Past History
ED Past Medical History: None
ED Past Surgical History: Appendectomy and Cholecystectomy
Social History
Tobacco: Non-smoker
Alcohol: None
Living: with family
Review of Systems
Review of Systems
Allergies reviewed?: Yes
All Other Systems: ROS reviewed and negative except as documented in HPI and ROS
Constitutional: Reports fatigue; Denies fever or chills
EENT: Reports no symptoms
Respiratory: Reports no symptoms
Cardiac: Reports no symptoms
ABD/GI: Reports nausea, vomiting and diarrhea; Denies abdominal pain
: Reports no symptoms
Musculoskeletal: Reports no symptoms
Skin: Reports no symptoms
Hematologic/Lymphatic: Reports no symptoms
Psychiatric: Reports no symptoms
Phy Exam
General Physical Exam
General Presentation: no apparent distress
General age: appears stated age
General Skin: warm and dry
General Habitus: normal
General Mental: alert
General Hydration: appears well hydrated
Cardiovascular Exam
Cardiovascular Exam: regular rate/rhythm, no murmur and irregularly irregular
Pulmonary Exam
Pulmonary Exam: lungs clear and no respiratory distress
Gastrointestinal Exam
Gastrointestinal Exam: normal bowel sounds, non tender and soft
Neurological Exam
Neurological Exam: alert
Musculoskeletal Exam
Musculoskeletal Exam: full ROM
Skin Exam
Skin Exam: normal color and warm/dry
Psychiatric Exam
Psychiatric Exam: normal mood/affect
Course
Orders/Labs/Results
Orders:
Orders
02/07/25 18:05
IV Insert/Care/Rem.- Treatment PRN
02/07/25 18:07
Basic Metabolic Panel Urgent
Complete Blood Count/With Diff Urgent
Lipase Urgent
02/07/25 19:09
Ondansetron Injectable [Zofran] 4 mg IV NOW STA
02/07/25 19:41
0.9% Sodium Chloride 1000 ml [Nss] 1,000 ml IV BOLUS
02/07/25 19:43
COVID-19 Antigen Urgent
Source: Nasal Swab
Influenza A+B Rapid Molecular Urgent
NUSRAT Source: Nasal Swab
Specimen Description:
02/07/25 20:59
Potassium Urgent
02/07/25 21:01
Acetaminophen [Tylenol] 1,000 mg PO NOW STA
02/07/25 21:20
Ondansetron Injectable [Zofran] 4 mg .ROUTE .STK-MED ONE
02/07/25 21:21
0.9% Sodium Chloride 500 ml [Nss] 500 ml IV BOLUS
Ondansetron Injectable [Zofran] 4 mg IV NOW STA
02/07/25 21:26
Urinalysis Reflex To Culture Urgent
Date Specimen was Collected: 02/07/25
Time Specimen was Collected: 18:06
02/07/25 22:27
Diphenhydramine [Benadryl] 25 mg IV NOW STA
Metoclopramide [Reglan] 10 mg IV NOW STA
02/07/25 23:43
Stool Culture Urgent
NUSRAT Source: Feces/Stool
Specimen Description:
02/07/25 23:45
Electrocardiogram (*1) Stat
Reason for Study: Other
Other Reason for Exam: chest pain
Cardiac Monitoring- Treatment ONCE
EKG- Treatment ONCE
Potassium Chloride [KCl] 40 meq 0.9% Sodium Chloride 250 ml [Nss] 250 ml IV NOW
Abnormal Lab Results
02/07/25 02/07/25
18:07 20:59
RBC 4.08 L 10^6/uL
(4.20-5.40)
MCH 32.4 H pg
(27.0-31.0)
Absolute Neuts (auto) 6.7 H 10^3/uL
(1.4-6.5)
Absolute Lymphs (auto) 0.2 L 10^3/uL
(1.2-3.4)
Neutrophils % 92.1 H %
(42.2-75.2)
Lymphocytes % 2.2 L %
(20.5-51.1)
Potassium 3.1 L mmol/L
(3.5-5.1)
BUN 23 H mg/dl
(7-17)
Creatinine 0.5 L mg/dL
(0.6-1.0)
Glucose 130 H mg/dl
(70-99)
Calcium 8.3 L mg/dl
(8.4-10.2)
02/07/25 18:07
02/07/25 20:59
Vital Signs
Initial and Last Documented VS:
Initial Vital Signs
Temp Pulse Resp BP Pulse Ox
99.0 F 66 18 116/55 96
02/07/25 18:02 02/07/25 18:02 02/07/25 18:02 02/07/25 18:02 02/07/25 18:02
Last Documented Vital Signs
Temp Pulse Resp BP Pulse Ox
99.0 F 66 18 116/55 96
02/07/25 18:02 02/07/25 18:02 02/07/25 18:02 02/07/25 18:02 02/07/25 18:02
Lay Out Technician consulted with Physician
Lay Out Technician consulted with physician?: Yes
Name of Physician Consulted: Osman
MDM/Problems Addressed
Differential Diagnosis Includes:
not limited to: viral syndrome , dehdyration . Electrolyte abnormality
MDM/Problems Addressed:
Patient is a 74-year-old female who started with nausea vomiting diarrhea since 3 AM. She presented to the ER complaining of feeling very weak. She appeared dehydrated. She was given multiple doses of antiemetics and vomited after Zofran. She
was given fluids and continue to complain of nausea and headache. She was given Reglan and Benadryl for headache. She was found to have low potassium and continues to feel very weak and nauseous. Will admit for hydration and electrolyte
replacement
Chronic conditions affecting care:
afib on eliquis(vomited her eliquis today )
*Pulse Oximetry
Patient hypoxic: no
*Critical Care Note
Total Time (30-74mins, 75-104mins- exclusive of procedures): Not Applicable
ED Attending Note
-
Portions of this chart may have been created with voice recognition software.� Occasional wrong word or��sound alike� substitutions may have occurred due to the inherent limitations of voice recognition software.
Discharge Plan
Departure
Patient Disposition: Admit
Date of Disposition: 02/07/25
Time of Disposition: 23:48
Admit to: Telemetry
Admit to doctor: hospitalist
Presentation/result/management discussed w/ accepting MD/DO: Hospitalist
Patient with high blood pressure during this ER visit?: No
Condition: Fair
Covid-19: Not Applicable
Discharge Problem:
Intractable nausea and vomiting, Diarrhea, Weakness, Acute hypokalemia
Prescriptions:
No Action
metoprolol succinate 50 MG tablet extended release 24 hr
50 mg PO DAILY
montelukast 10 MG tablet
10 mg PO HS
multivitamin with folic acid [Tab-A-Erich] 1 TABLET tablet
1 tab PO DAILY
guaifenesin [Mucus Relief ER] 600 MG tablet extended release 12hr
1,200 mg PO BID
albuterol sulfate 1 PUFF HFA aerosol inhaler
2 puff inhalation Q4HPRN PRN (Reason: sob)
letrozole 2.5 MG tablet
2.5 mg PO DAILY
cholecalciferol (vitamin D3) 2,000 UNITS tablet
2,000 units PO DAILY
fluoxetine 40 mg Capsule
80 mg PO HS
fexofenadine 180 mg Tablet
180 mg PO DAILYPRN PRN (Reason: allergies)
budesonide-formoterol [Symbicort] 160-4.5 mcg/actuation Hfa Aerosol Inhaler
2 puff INHALATION BID
Prolia 60 mg/mL Syringe
60 mg SC [id number]
[facility] 40-10-5-3.3 mg Tablet
1 tab PO DAILY
fluticasone propionate 50 mcg/actuation [place],Suspension
1 spray INTRANASAL DAILYPRN PRN (Reason: allergies)
Eliquis 5 mg Tablet
5 mg PO BID Qty: 60 0RF
acetaminophen [Tylenol] 325 mg Tablet
325 mg PO Q4HPRN PRN (Reason: pain)
calcium carbonate [Tums] 200 mg calcium (500 mg) Tablet,Chewable
200 mg PO BIDPRN PRN (Reason: reflux)
levalbuterol HCl 1.25 mg/3 mL Solution For Nebulization
1.25 mg INHALATION TIDPRN PRN (Reason: SOB)
carboxymethylcellulose sodium 1 % Drops, Liquid Gel
2 drp OPHTHALMIC (EYE) HS
furosemide 20 mg Tablet
40 mg PO DAILY
pantoprazole [Protonix] 40 mg tablet,delayed release (DR/EC)
40 mg PO DAILY Qty: 30 0RF
fluconazole 150 mg Tablet
150 mg PO DAILYPRN PRN (Reason: yeast)
amiodarone [Pacerone] 200 mg tablet
200 mg PO DAILY
Referrals:
Leslye Motley MD [Family Provider] -
Interventions
Interventions:
*Risk Screen - Suicide Last Done: 02/07/25 18:04
*General Assessment Last Done: 02/07/25 18:04
*Neglect/Abuse Screening Last Done: 02/07/25 18:06
*ED- Fall Risk Assessment Last Done: 02/07/25 18:04
*ED COVID-19 Vaccine History Last Done: 02/07/25 18:04
ZI-Ldloiz-Mltfcfeyah Assessment Last Done: 02/07/25 18:06
Discharge Date and Time
Print Language: LITHUANIAN
[2025-02-07] MEDS: ZOFRAN 4 MG IV ×2 (19:38→21:22)
[2025-02-07 20:26] LABS: COVID-19 Antigen Negative (Negative)
[2025-02-07] MEDS: TYLENOL 1000 MG PO (21:02)
[2025-02-07 21:21] LABS: Potassium 3.1 mmol/L (3.5-5.1)
[2025-02-07] MEDS: NSS 500 IV (21:22)
[2025-02-07] MEDS: BENADRYL 25 MG IV (22:34)
[2025-02-07] MEDS: REGLAN 10 MG IV (22:34)
[2025-02-07 23:57] VITALS: BP 137/67
[2025-02-08] VITALS (9 sets, daily range): BP systolic 115–150; BP diastolic 60–75; PULSE 62; BMI 25.8
--- NOTE | 2025-02-08 01:07 | HPS.HSE ---
Family Physician
-
Family Physician: Leslye Motley
Chief Complaint
-
N/V/D
History of Present Illness
Patient is a 74y F with PMH significant for A-Fib, hypertension and HFrEF who presents to ED complaining of N/V/D. Patient states that she woke around 3 AM last night with N/V/D. She reports about 6-8 episodes of each throughout the day today.
Patient notes that she was feeling well when she went to bed last PM. No other family members / close contacts with recent GI symptoms. No unusual food intake, restaurants, recent travel, etc.
Patient reports that she has been unable to tolerate any PO intake all day today - including her usual medications.
She presented to the ED this evening for further evaluation.
Medical History
Past Medical History
Past Medical History: Reports Other
Additional Past Medical History:
Atrial Fibrillation
Hypertension
Chronic HFrEF (45%)
ARIANA on CPAP
COPD
Breast Cancer s/p Lumpectomy and XRT
Osteoporosis
Anxiety / Depression
Melanoma
Past Surgical History: Reports Other
Additional Past Surgical History:
Right Lumpectomy
Cholecystectomy
Appendectomy
Melanoma Excision
Left RODNEY
Right TKA
RUE ORIF
Social History
Tobacco: Former Smoker (Quit smoking about 30 years ago.)
Alcohol: Occasional
Personal:
Living: With Family
Family History
Family History: Not pertinent
Allergies / Home Medications
Allergies reflects when Allergies were last updated in [employer]
Home Medications with original date entered in [employer]
Allergy/Medication List:
Allergies
Allergy/AdvReac Type Severity Reaction Status Date / Time
adhesive Allergy Rash, Verified 06/06/24 09:44
Blister
latex Allergy Skin Verified 06/06/24 09:44
irritation,
blisters,
difficulty
breathing,
rash
Penicillins Allergy Swelling, Verified 06/06/24 09:44
rash, hives
pollen extracts Allergy coughing Verified 06/06/24 09:44
and
sneezing
Home Medications
albuterol sulfate 90 mcg/actuation aerosol inhaler 2 puff inhalation Q4HPRN PRN sob 08/02/19
guaifenesin 600 mg tablet, extended release 12 hr (Mucus Relief ER) 1,200 mg PO BID 08/02/19
metoprolol succinate 50 mg tablet,extended release 24 hr 50 mg PO DAILY 08/02/19
montelukast 10 mg tablet 10 mg PO HS 08/02/19
cholecalciferol (vitamin D3) 50 mcg (2,000 unit) tablet 2,000 units PO DAILY 12/20/19
budesonide-formoterol HFA 160 mcg-4.5 mcg/actuation aerosol inhaler (Symbicort) 2 puff inhalation BID 02/20/24
cartilage 40 mg-collagen II 10 mg-boron 5 mg-hyaluronate 3.3 mg tablet ([employer]) 1 tab PO DAILY 02/20/24
denosumab 60 mg/mL subcutaneous syringe (Prolia) 60 mg SC [id number] 02/20/24
fexofenadine 180 mg tablet 180 mg PO DAILYPRN PRN allergies 02/20/24
fluoxetine 40 mg capsule 80 mg PO HS 02/20/24
fluticasone propionate 50 mcg/actuation nasal spray,suspension 1 spray intranasal DAILYPRN PRN allergies 02/20/24
apixaban 5 mg tablet (Eliquis) 5 mg PO BID #60 tabs 02/23/24
acetaminophen 325 mg tablet (Tylenol) 325 mg PO Q4HPRN PRN pain 03/09/24
calcium carbonate (Tums) 200 mg PO BIDPRN PRN reflux 03/09/24
levalbuterol HCl 1.25 mg/3 mL solution for nebulization 1.25 mg inhalation TIDPRN PRN SOB 03/09/24
furosemide 20 mg tablet 40 mg PO PRN PRN swelling 05/16/24
fluconazole 150 mg tablet 150 mg PO DAILYPRN PRN yeast 06/05/24
Review of Systems
-
History Source: Patient
A 12 point ROS was completed and negative except as noted: Yes
Constitutional: Reports Fatigue; Denies Fever or Chills
Respiratory: Denies Cough or Trouble Breathing
Cardiac: Denies Chest Pain or Palpitations
Abdomen/GI: Reports Nausea, Vomiting and Diarrhea; Denies Abdominal Pain, Bloody Stools or Black Stools
: Denies Dysuria or Frequency
Musculoskeletal: Denies Joint Pain or Edema
Neurological: Reports Headache; Denies Dizzy
Psych: Denies Depression or Anxiety
Physical Exam
Vital Signs
Vital Signs
Temp Pulse Resp BP Pulse Ox
99.0 F 106 19 129/74 93
02/07/25 18:02 02/08/25 01:00 02/08/25 01:00 02/08/25 01:00 02/08/25 01:00
Physical Exam
General: Other (Mildly ill-appearing 74y F.)
HEENT: Other (Dry MM. Neck supple.)
Respiratory: Clear; No Wheezes, Rales or Rhonchi
Cardiac: S1/S2 and Irregular Rhythm; No Murmur
GI: Soft, Non Tender, Non Distended and Normal Bowel Sounds
Musculoskeletal: No Clubbing, No Cyanosis and No Edema
Neuro: AO x 3
Laboratory Results
-
02/07/25 18:07
02/07/25 20:59
Laboratory Results
Total Bilirubin Cancelled 02/07/25 18:07
AST Cancelled 02/07/25 18:07
ALT Cancelled 02/07/25 18:07
Alkaline Phosphatase Cancelled 02/07/25 18:07
Lipase 42 U/L (23-300) 02/07/25 18:07
Impression/Plan
-
A/P: Patient is a 74y F with PMH significant for A-Fib, HFrEF and COPD who presents to ED complaining of N/V/D since 3 AM.
Gastroenteritis
- Observe overnight for further evaluation / supportive care.
- Likely viral GE with N/V/D over the past 24 hours.
- IVFs support, antiemetics, etc.
- Follow for clinical improvement.
- Clear liquid diet for now - advance as tolerated.
Hypokalemia
- Likely secondary to GI losses.
- IV replacement given in the ED.
- Continue with IVFs support.
- Repeat labs / add Mg in AM.
Persistent Atrial Fibrillation
- Stable. In mostly rate-controlled A-Fib in the ED.
- Continue usual metoprolol.
- Continue Eliquis.
- Monitor on tele overnight.
Benign Hypertension
- Stable. Continue metoprolol.
COPD
- Stable. Continue Symbicort.
- Follow for any new / worsening symptoms.
ARIANA
- On CPAP at home - hold acutely given intractable N/V and aspiration risk.
DVT Prophylaxis: On Eliquis
Code Status: Full
[2025-02-08] MEDS: KCL 270 MEQ IV ×2 (01:31→12:56)
[2025-02-08 02:11] LABS: Urine Albumin 1+ (Neg - Trace); Urine Bilirubin Negative (Negative); Urine Character Clear (Clear); Urine Color Yellow; Urine Glucose Negative (Negative); Urine Ketone 2+ (Negative); Urine Leukocyte Negative (Negative); Urine Nitrite Negative (Negative); Urine Occult Blood 2+ (Negative); Urine Urobilinogen Negative (Neg - 1+)
[2025-02-08 02:29] LABS: Urine Squamous Cell 0-2 /LPF (Few)
[2025-02-08 02:30] LABS: Urine Bacteria Few (Negative); Urine White Cell 0-2 /HPF (0-5)
--- NOTE | 2025-02-08 04:30 | PTCARENOTE ---
Patient complaining of burning at peripheral IV site. IV K+ rate decreased to 50 ml/hr. Warm blanket wrapped around arm with peripheral site. Patient better tolerating infusion.
[2025-02-08] MEDS: LR 1000 IV (05:42)
[2025-02-08] MEDS: TORADOL 10 MG IV (05:44)
[2025-02-08] MEDS: SYMBICORT 160/4.5 MCG INHALER 2 PUFF INH ×2 (08:11→19:24)
[2025-02-08 08:37] LABS: Hematocrit 34.2 % (37.0-47.0); Hemoglobin 11.6 g/dL (12.0-16.0); Mean Corp Hgb Conc. 33.9 g/dL (33.0-37.0); Mean Corpuscular Hgb 32.6 pg (27.0-31.0); Mean Corpuscular Volume 96.1 fL (81.0-99.0); Platelet Count 142 10^3/uL (130-400); Red Blood Cell Count 3.56 10^6/uL (4.20-5.40); Red Cell Dist. Width 12.8 % (11.5-14.5); White Blood Cell Count 4.7 10^3/uL (4.8-10.8)
--- NOTE | 2025-02-08 08:40 | W.PN.HOSP.TC ---
Today's Communication/Plan
-
Advance diet as tolerated
Possible discharge later today
Assessment / Plan
Assessment / Plan
Gen-AAOx3, NAD
HEENT-NC, AT, anicteric, clear oral mm
Neck-supple
CV-reg, no M, +S1/S2
Lungs-clear B/L
Abd-soft, NT, ND
Ext-no edema
Musculoskeletal-no cyanosis, clubbing
Skin-warm and dry
Neuro-grossly non-focal
Psych-calm, cooperative
Acute gastroenteritis -she lives in [facility], concern for possible norovirus infection versus other pathology. Clinically improved. Tolerating clears. Denies further nausea or vomiting or diarrhea. If she has further diarrhea can check
stool specimen. Advance diet as tolerated to low lactose. Discussed with patient and nursing. No more IV fluids after this bag is done.
Potential discharge later today if stable. Outpatient follow-up.
Hypokalemia -repleted, check labs today.
Persistent atrial fibrillation -continue Eliquis. Rates slightly fast last night but improved this morning. DC telemetry if rates remain stable.
Essential hypertension -stable.
COPD without exacerbation -stable, continue inhalers.
ARIANA -resume CPAP.
Full code
Dispo -potential discharge this afternoon if clinically stable back to [facility]. Discussed with patient and nurse.
Anticipated Discharge: Today
Subjective/Interval History
-
Date of Service: February 08, 2025
Patient seen and examined. Feeling better. No complaints.
Objective Data
-
Labs:
Laboratory Results
02/07/25 02/07/25 02/08/25
18:07 20:59 07:55
WBC 4.7 L
Hgb 11.6 L
Hct 34.2 L
Plt Count 142
Sodium 135 Pending
Potassium 3.1 L Pending
Chloride 105 Pending
Carbon Dioxide 22 Pending
BUN 23 H Pending
Creatinine 0.5 L Pending
Glucose 130 H Pending
Calcium 8.3 L Pending
Total Bilirubin Cancelled
AST Cancelled
ALT Cancelled
Alkaline Phosphatase Cancelled
Vital Signs:
Vital Signs
Temp Pulse Resp BP Pulse Ox
98.1 F 81 16 134/71 95
02/08/25 03:00 02/08/25 08:15 02/08/25 08:15 02/08/25 03:00 02/08/25 08:15
I&O
02/07/25 02/08/25 02/09/25
06:59 06:59 06:59
Intake Total 218 / 218
Balance 218 / 218
Review of Systems
-
History Source: Patient
All other systems: Reviewed and negative
[2025-02-08] MEDS: TOPROL XL 50 MG PO (09:07)
[2025-02-08] MEDS: ELIQUIS 5 MG PO ×2 (09:07→20:43)
[2025-02-08 09:25] LABS: Blood Urea Nitrogen 14 mg/dl (7-17); Calcium 7.1 mg/dl (8.4-10.2); Carbon Dioxide 21 mmol/L (22-30); Chloride 109 mmol/L (98-107); Estimated Creatinine Clearance 75 ml/min; Glucose 99 mg/dl (70-99); Magnesium 1.8 mg/dl (1.6-2.3); Potassium 2.8 mmol/L (3.5-5.1); Sodium 137 mmol/L (135-145); eGFR > 60.00
--- NOTE | 2025-02-08 11:35 | CM ---
CM reviewed chart, patient seen bedside, initial assessment completed. Patient resides with her spouse at [facility]. Patient reports having a cane at home, history [facility] in past after hip/knee, denies SNF. Patient confirms PCP Leslye Motley,
pharmacy [facility], confirms prescription coverage. [employer] form reviewed verbally, provided with copy, placed in chart. Patient reports family will provide transportation home. CM will continue to follow for all discharge planning needs.
Plan; return to [facility], likely no needs.
[2025-02-08] MEDS: KCL 40 MEQ PO (12:56)
[2025-02-08] MEDS: TYLENOL 650 MG PO (15:19)
[2025-02-08 18:20] LABS: Blood Urea Nitrogen 11 mg/dl (7-17); Carbon Dioxide 21 mmol/L (22-30); Chloride 108 mmol/L (98-107); Estimated Creatinine Clearance 75 ml/min; Glucose 97 mg/dl (70-99); Potassium 3.4 mmol/L (3.5-5.1); Sodium 136 mmol/L (135-145); eGFR > 60.00
[2025-02-08] MEDS: PROZAC 80 MG PO (20:42)
[2025-02-08] MEDS: SINGULAIR 10 MG PO (20:43)
[2025-02-09] VITALS (8 sets, daily range): BP systolic 139–155; BP diastolic 65–85; PULSE 66–97; BMI 26.4
--- NOTE | 2025-02-09 01:58 | PTCARENOTE ---
AAO x 4. Essential tremor noted on assessment. OOB x 1 assist with rolling walker. VSS. NSR on telemetry, box # 36. Patient denies nausea/vomiting. Patient tolerating her diet. Liquid stool frequency decreased from prior shift. CPAP worn overnight.
Wound consulted for pressure injury, to bridge of nose, from prior CPAP use. Enhanced contact precautions maintained. All patient needs met. Bed in lowest position. Bed alarm on. Call alvarez and personal belongings within reach.
--- NOTE | 2025-02-09 05:45 | PTCARENOTE ---
Left forearm IV with bloody drainage. IV team notified. Will be up to assess.
[2025-02-09] MEDS: SYMBICORT 160/4.5 MCG INHALER 2 PUFF INH ×2 (07:29→19:33)
[2025-02-09] MEDS: ELIQUIS 5 MG PO ×2 (08:08→20:57)
[2025-02-09] MEDS: TOPROL XL 50 MG PO (08:08)
[2025-02-09 08:59] LABS: Blood Urea Nitrogen 5 mg/dl (7-17); Calcium 7.4 mg/dl (8.4-10.2); Carbon Dioxide 23 mmol/L (22-30); Chloride 108 mmol/L (98-107); Estimated Creatinine Clearance 75 ml/min; Glucose 104 mg/dl (70-99); Potassium 2.9 mmol/L (3.5-5.1); Sodium 140 mmol/L (135-145); eGFR > 60.00
--- NOTE | 2025-02-09 09:32 | W.PN.HOSP.TC ---
Today's Communication/Plan
-
Replete potassium
Check stool for C. difficile colitis
PT/OT
Check magnesium
Assessment / Plan
Assessment / Plan
Gen-AAOx3, NAD
HEENT-NC, AT, anicteric, clear oral mm
Neck-supple
CV-reg, no M, +S1/S2
Lungs-clear B/L
Abd-soft, NT, ND
Ext-no edema
Musculoskeletal-no cyanosis, clubbing
Skin-warm and dry
Neuro-grossly non-focal
Psych-calm, cooperative
Acute norovirus gastroenteritis -continue supportive care. Tolerating low lactose diet. Given ongoing diarrhea, check stool for C. difficile colitis as well. If negative then add Imodium as needed.
Hypokalemia -2.9 today. Continue repletion. Check magnesium. Etiology of hypokalemia due to gastroenteritis and GI losses.
Persistent atrial fibrillation -continue Eliquis. Rates slightly fast last night but improved this morning. DC telemetry if rates remain stable.
Essential hypertension -stable.
COPD without exacerbation -stable, continue inhalers.
ARIANA -continue CPAP.
Full code
PT/OT
Dispo - back to [facility] when medically stable. Discussed with patient and nurse.
Anticipated Discharge: 24 - 48 hours
Subjective/Interval History
-
Date of Service: February 09, 2025
Patient seen and examined. Still with diarrhea. Denies nausea or abdominal pain. Appetite improving.
Objective Data
-
Labs:
Laboratory Results
02/09/25
08:26
Sodium 140
Potassium 2.9 L
Chloride 108 H
Carbon Dioxide 23
BUN 5 L
Creatinine 0.5 L
Glucose 104 H
Calcium 7.4 L
Vital Signs:
Vital Signs
Temp Pulse Resp BP Pulse Ox
98.4 F 65 15 139/65 95
02/09/25 07:51 02/09/25 07:51 02/09/25 07:51 02/09/25 07:51 02/09/25 07:51
I&O
02/08/25 02/09/25 02/10/25
06:59 06:59 06:59
Intake Total 218 / 218 840 / 840
Balance 218 / 218 840 / 840
Review of Systems
-
History Source: Patient
All other systems: Reviewed and negative
[2025-02-09] MEDS: KCL 40 MEQ PO ×2 (09:56→20:57)
[2025-02-09] MEDS: KCL 270 MEQ IV (09:56)
[2025-02-09 10:05] LABS: Magnesium 1.9 mg/dl (1.6-2.3)
[2025-02-09] MEDS: TYLENOL 650 MG PO ×2 (11:37→23:26)
[2025-02-09] MEDS: SINGULAIR 10 MG PO (20:57)
[2025-02-09] MEDS: PROZAC 80 MG PO (20:57)
[2025-02-10 03:00] VITALS: BP 147/79
[2025-02-10 03:54] VITALS: BMI 25.7
[2025-02-10 04:28] VITALS: BP 142/81; BP 147/79; BP 149/100; PULSE 63; PULSE 71; PULSE 72
[2025-02-10 07:29] LABS: Blood Urea Nitrogen 6 mg/dl (7-17); Calcium 8.1 mg/dl (8.4-10.2); Carbon Dioxide 23 mmol/L (22-30); Chloride 108 mmol/L (98-107); Estimated Creatinine Clearance 75 ml/min; Glucose 95 mg/dl (70-99); Potassium 4.2 mmol/L (3.5-5.1); Sodium 140 mmol/L (135-145); eGFR > 60.00
[2025-02-10 07:50] VITALS: BP 137/83
[2025-02-10] MEDS: SYMBICORT 160/4.5 MCG INHALER 2 PUFF INH (08:25)
[2025-02-10] MEDS: TOPROL XL 50 MG PO (08:48)
[2025-02-10] MEDS: KCL 40 MEQ PO (08:48)
[2025-02-10] MEDS: ELIQUIS 5 MG PO (08:48)
--- NOTE | 2025-02-10 11:33 | W.PN.HOSP.TC ---
Today's Communication/Plan
-
Discharge
Assessment / Plan
Assessment / Plan
Gen-AAOx3, NAD
HEENT-NC, AT, anicteric, clear oral mm
Neck-supple
CV-reg, no M, +S1/S2
Lungs-clear B/L
Abd-soft, NT, ND
Ext-no edema
Musculoskeletal-no cyanosis, clubbing
Skin-warm and dry
Neuro-grossly non-focal
Psych-calm, cooperative
Acute norovirus gastroenteritis -continue supportive care. Tolerating low lactose diet. Diarrhea resolved.
Hypokalemia -resolved.
Persistent atrial fibrillation -continue Eliquis.
Essential hypertension -stable.
COPD without exacerbation -stable, continue inhalers.
ARIANA -continue CPAP.
Full code
PT/OT
Dispo - back to [facility] today. Follow-up with PCP.
31 minutes spent in discharge process.
Anticipated Discharge: Today
Subjective/Interval History
-
Date of Service: February 10, 2025
Patient seen and examined. Feeling much better. No complaints. Eager to go home.
Objective Data
-
Labs:
Laboratory Results
02/10/25
06:29
Sodium 140
Potassium 4.2 D
Chloride 108 H
Carbon Dioxide 23
BUN 6 L
Creatinine 0.4 L
Glucose 95
Calcium 8.1 L
Vital Signs:
Vital Signs
Temp Pulse Resp BP Pulse Ox
98.4 F 66 15 137/83 96
02/10/25 07:50 02/10/25 07:50 02/10/25 07:50 02/10/25 07:50 02/10/25 07:50
I&O
02/09/25 02/10/25 02/11/25
06:59 06:59 06:59
Intake Total 0 / 0 1949
Balance 840 / 0 1949
Review of Systems
-
History Source: Patient
All other systems: Reviewed and negative
--- NOTE | 2025-02-10 11:36 | W.DS.TRANS ---
DC Summary - [employer]
-
Discharge Instructions:
Discharge Diagnosis/Procedures Acute norovirus gastroenteritis
Diet Other diet
Additional Diets Low lactose
Activity As tolerated
Driving Restrictions As prior to admission
Bathing Restrictions None
Instructions:
Stand-Alone Forms:
Changes to Home Medications: No
Discharge Medications:
DC Medications w/original date entered in [employer] [facility]
albuterol sulfate 90 mcg/actuation aerosol inhaler 2 puff inhalation Q4HPRN PRN sob 08/02/19
guaifenesin 600 mg tablet, extended release 12 hr (Mucus Relief ER) 1,200 mg PO BID Cough 08/02/19
metoprolol succinate 50 mg tablet,extended release 24 hr 50 mg PO DAILY Blood Pressure 08/02/19
montelukast 10 mg tablet 10 mg PO HS Lung/Breathing Issues 08/02/19
cholecalciferol (vitamin D3) 50 mcg (2,000 unit) tablet 2,000 units PO DAILY Supplement 12/20/19
budesonide-formoterol HFA 160 mcg-4.5 mcg/actuation aerosol inhaler (Symbicort) 2 puff inhalation BID Lung/Breathing Issues 02/20/24
cartilage 40 mg-collagen II 10 mg-boron 5 mg-hyaluronate 3.3 mg tablet ([facility]) 1 tab PO DAILY Supplement 02/20/24
denosumab 60 mg/mL subcutaneous syringe (Prolia) 60 mg SC [id number] Osteoperosis 02/20/24
fexofenadine 180 mg tablet 180 mg PO DAILYPRN PRN allergies 02/20/24
fluoxetine 40 mg capsule 80 mg PO HS Depression 02/20/24
fluticasone propionate 50 mcg/actuation nasal spray,suspension 1 spray intranasal DAILYPRN PRN allergies 02/20/24
apixaban 5 mg tablet (Eliquis) 5 mg PO BID #60 tabs 02/23/24
acetaminophen 325 mg tablet (Tylenol) 325 mg PO Q4HPRN PRN pain 03/09/24
calcium carbonate (Tums) 200 mg PO BIDPRN PRN reflux 03/09/24
levalbuterol HCl 1.25 mg/3 mL solution for nebulization 1.25 mg inhalation TIDPRN PRN SOB 03/09/24
furosemide 20 mg tablet 40 mg PO PRN PRN swelling 05/16/24
fluconazole 150 mg tablet 150 mg PO DAILYPRN PRN yeast 06/05/24
ondansetron 4 mg disintegrating tablet 4 mg PO Q6H PRN nausea and vomiting #7 tabs 02/08/25
Home Medication Changes
Pending Results: No
[2025-02-10 11:41] VITALS: BP 139/70; BP 140/82; BP 145/76; PULSE 98
--- NOTE | 2025-02-10 12:30 | CM ---
CM reviewed chart, patient for discharge today. Patient denies needs at this time, per PT, no skilled need. Patient confirms transport home. CM will continue to follow for all discharge planning needs.
Plan; home no needs
== END 2025-02-10 13:19 | disposition home or self-care (01) ==
LOC: 4 WEST ACU 01:21
PROVIDERS: Nurse Practitioner; ADMITTING PHYSICIAN Hospitalist; ATTENDING PHYSICIAN Hospitalist; EMERGENCY PHYSICIAN Emergency Medicine; FAMILY PHYSICIAN Internal Medicine
DX: A08.11 Acute gastroenteropathy due to Norwalk agent (principal); R10.9 Unspecified abdominal pain; R11.2 Nausea with vomiting, unspecified; R19.7 Diarrhea, unspecified; I48.19 Other persistent atrial fibrillation; I11.0 Hypertensive heart disease with heart failure; J44.89 Other specified chronic obstructive pulmonary disease; R53.1 Weakness; R07.9 Chest pain, unspecified; I50.22 Chronic systolic (congestive) heart failure; E86.0 Dehydration; M81.0 Age-related osteoporosis without current pathological fracture; I44.7 Left bundle-branch block, unspecified; F41.9 Anxiety disorder, unspecified; F32.A Depression, unspecified; R51.9 Headache, unspecified; E87.6 Hypokalemia; G47.33 Obstructive sleep apnea (adult) (pediatric); Z79.01 Long term (current) use of anticoagulants; Z85.3 Personal history of malignant neoplasm of breast; Z85.820 Personal history of malignant melanoma of skin; Z92.3 Personal history of irradiation; Z90.49 Acquired absence of other specified parts of digestive tract; Z96.642 Presence of left artificial hip joint; Z96.651 Presence of right artificial knee joint; Z87.891 Personal history of nicotine dependence; Z91.040 Latex allergy status; Z88.0 Allergy status to penicillin; Z91.048 Other nonmedicinal substance allergy status; Z79.51 Long term (current) use of inhaled steroids; Z11.52 Encounter for screening for COVID-19
CPT/HCPCS: 80048; 81003; 81015; 83690; 83735; 84132; 85025; 85027; 87045; 87046; 87070; 87427; 87502; 87798; 87811; 93005; 94640; 94660; 96361; 96374; 96375; 97162; G0378

== ENCOUNTER → 2025-02-15 11:59 | Outpatient (REF) | payer OTHER, SELFPAY | LOC: HWWDC 11:59 | PROVIDERS: ATTENDING PHYSICIAN Internal Medicine Hematology & Oncology; FAMILY PHYSICIAN Internal Medicine; REFERRING PHYSICIAN Family Medicine Geriatric Medicine | DX: Z12.31 Encounter for screening mammogram for malignant neoplasm of breast (principal) | CPT/HCPCS: 77063; 77067 ==

== ENCOUNTER → 2025-03-01 11:21 | Outpatient (REF) | payer OTHER, SELFPAY | LOC: HWRAD 11:21 | PROVIDERS: ATTENDING PHYSICIAN Internal Medicine Hematology & Oncology; FAMILY PHYSICIAN Internal Medicine | DX: C50.311 Malignant neoplasm of lower-inner quadrant of right female breast (principal); M81.0 Age-related osteoporosis without current pathological fracture; R52 Pain, unspecified; B35.4 Tinea corporis; R53.1 Weakness | CPT/HCPCS: 77080 ==

== ENCOUNTER 2025-04-04 06:15 | Day surgery (SDC) | payer OTHER, SELFPAY | END 2025-04-04 08:53 | disposition home or self-care (01) | LOC: GI 06:15 | PROVIDERS: ATTENDING PHYSICIAN Specialist | DX: Z12.11 Encounter for screening for malignant neoplasm of colon (principal); K64.8 Other hemorrhoids; K55.20 Angiodysplasia of colon without hemorrhage; Z86.0101 Personal history of adenomatous and serrated colon polyps; Z80.0 Family history of malignant neoplasm of digestive organs | CPT/HCPCS: G0105 ==

== ENCOUNTER → 2025-07-22 14:01 | Outpatient (REF) | payer MEDICARE, SELFPAY | LOC: PAVMRI 14:01 | PROVIDERS: ATTENDING PHYSICIAN Internal Medicine Hematology & Oncology; FAMILY PHYSICIAN Internal Medicine | DX: C50.311 Malignant neoplasm of lower-inner quadrant of right female breast (principal); M81.0 Age-related osteoporosis without current pathological fracture; R52 Pain, unspecified; B35.4 Tinea corporis; R53.1 Weakness | CPT/HCPCS: 73223; A9575 ==